=== PATIENT | male | born 1955 | race Caucasian/White ===

== ENCOUNTER 2016-06-26 08:46 | Inpatient (IN) | payer OTHER ==
[~2016-06-26] VITALS: Ht 170.2 cm; Wt 83.6 kg
[~2016-06-26 08:46] MED LIST: CEPH-443 PO
--- NOTE | 2016-06-26 12:22 | ERA ---
ER Documentation Chief Complaint Date/Time DATE: 06/26/16 TIME: 12:21 Chief Complaint left lower flank pain with hematuria and urinary retention for 3 days. HPI The patient is a 61-year-old female, presenting to the ER because of lower back pain, abdominal pain, painful urination for the last 3 days. He had similar symptoms previously, denies fever, chills, neck pain, chest pain, dyspnea, vomiting, diarrhea, constipation. He does not smoke does not drink Past medical history: Anemia, history of urinary retention, BPH Past surgical history: TURP 3 years ago, left knee arthroscopy ROS All systems reviewed and are negative except as per history of present illness. Medications Home Meds Active Scripts Cephalexin* (Keflex*) 500 Mg Capsule, 500 MG PO QID for 7 Days, CAP Prov:SCAR AJ MD 02/14/16 Allergies Allergies: Coded Allergies: ciprofloxacin (Verified Allergy, Mild, 09/02/15) PMhx/Soc History of Surgery: Yes (KNEE SX,CYSTOSCOPY) Anesthesia Reaction: No Hx Neurological Disorder: No Hx Respiratory Disorders: No Hx Cardiac Disorders: No Hx Psychiatric Problems: No Hx Miscellaneous Medical Probl: No Hx Alcohol Use: No Hx Substance Use: No Hx Tobacco Use: No Physical Exam Vitals Vital Signs Date Time Temp Pulse Resp B/P Pulse Ox O2 Delivery O2 Flow Rate FiO2 06/26/16 08:54 97.9 100 21 144/89 99 Physical Exam Const: No acute distress. Head: Atraumatic. Eyes: Normal Conjunctiva. ENT: Normal External Ears, Nose and Mouth. Neck: Full range of motion. No meningismus. Resp: Clear to auscultation bilaterally. Cardio: Regular rate and rhythm, no murmurs. Abd: Soft, non distended, normal bowel sounds, diffuse abdominal tenderness, no rigidity, rebound, CVA tenderness. Mild lumbar tenderness Skin: No petechiae or rashes. Back: No midline or flank tenderness. Ext: No cyanosis, or edema. Neur: Awake and alert. No focal deficit Psych: Normal Mood and Affect. Result Diagram: 06/26/16 1305 06/26/16 1305 Results 24 hrs Laboratory Tests Test 06/26/16 13:05 Alanine Aminotransferase (ALT/SGPT) 29IU/L Albumin 4.1g/dl Albumin/Globulin Ratio 1.20 Alkaline Phosphatase 346IU/L Anion Gap 19 Aspartate Amino Transf (AST/SGOT) 59IU/L Basophils # 0.010^3/ul Basophils % 0.2% Blood Morphology Comment Blood Urea Nitrogen 24mg/dl Calcium Level 9.6mg/dl Carbon Dioxide Level 30mmol/L Chloride Level 98mmol/L Creatinine 0.95mg/dl Direct Bilirubin 0.00mg/dl Eosinophils # 0.010^3/ul Eosinophils % 0.3% Globulin 3.40g/dl Glucose Level 120mg/dl Hematocrit 42.3% Hemoglobin 14.3g/dl Indirect Bilirubin 0.9mg/dl Lipase 61U/L Lymphocytes # 1.010^3/ul Lymphocytes % 10.0% Mean Corpuscular Hemoglobin 30.6pg Mean Corpuscular Hemoglobin Concent 33.9g/dl Mean Corpuscular Volume 90.3fl Mean Platelet Volume 6.9fl Monocytes # 0.810^3/ul Monocytes % 7.5% Neutrophils # 8.310^3/ul Neutrophils % 82.0% Nucleated Red Blood Cells # 0.010^3/ul Nucleated Red Blood Cells % 0.0/100WBC Platelet Count 83049^3/UL Potassium Level 4.6mmol/L Red Blood Count 4.6910^6/ul Red Cell Distribution Width 12.5% Sodium Level 142mmol/L Total Bilirubin 0.9mg/dl Total Protein 7.5g/dl Urine Bilirubin 1+ Urine Clarity CLOUDY Urine Color RED Urine Glucose NEGATIVE% Urine Hemoglobin 3+ Urine Ictotest Pending Urine Ketones TRACE Urine Leukocyte Esterase NEGATIVE Urine Microscopic RBC >200/HPF Urine Microscopic WBC 0-2/HPF Urine Nitrite NEGATIVE Urine Specific [place] 1.015 Urine Total Protein 2+ Urine Urobilinogen 0.2 E.U./dL Urine pH 5.0 White Blood Count 10.110^3/ul Current Medications Medications (Trade) Dose Ordered Sig/Olaf Route PRN Reason Start Time Stop Time Status Last Admin Dose Admin Morphine Sulfate (morphine) 4 mg ONCE STAT IV 06/26/16 12:33 06/26/16 12:35 DC 06/26/16 12:33 Ondansetron HCl (Zofran Inj) 4 mg ONCE STAT IV 06/26/16 12:33 06/26/16 12:35 DC 06/26/16 12:33 Procedures/[facility] [address] [address] Radiology Main Line: [phone] DIAGNOSTIC IMAGING REPORT Patient: SHON DORSEY : 1955 Age: 61 Sex: M MR #: [id number] DOS: 06/26/16 1233 Ordering MD: JULIAN LARSEN MD Location: E/R Room/Bed: PROCEDURE: CT Abdomen and Pelvis without contrast. CLINICAL INDICATION: Hematuria, low back pain TECHNIQUE: CT of the abdomen and pelvis was performed on a multi-detector scanner without IV contrast. Coronal and sagittal images were reformatted from the axial data set. One or more of the following dose reduction techniques were used: automated exposure control, adjustment of the mA and/or kV according to patient size, use of iterative reconstruction technique. CTDI = 11.98 mGy. DLP = 687.8 mGy-cm. COMPARISON: CT, 02/12/2015 FINDINGS: CT abdomen: The lung bases are clear. The heart size is normal, without pericardial effusion. Coronary arterial calcifications are present. Liver, gallbladder, biliary tree, pancreas, spleen and adrenal glands are unremarkable. Bilateral benign renal cysts are noted. Tiny nonobstructive left renal calculus is identified, without ureterolithiasis or obstructive uropathy. Small hiatal hernia is noted. The stomach is otherwise grossly unremarkable. The aorta is of normal caliber. Aortoiliac atherosclerotic calcifications are present. Enlarged right retroperitoneal lymph node is identified measuring 3.0 x 1.7 cm (601-57). The dante hepatis region is clear. CT pelvis: No bowel obstruction, free intraperitoneal air or abscess is identified. No diverticulosis, diverticulitis or colitis is identified. The appendix is well visualized and normal. Urinary bladder is markedly distended, concerning for urinary retention. Prostate is enlarged and demonstrates irregular contour and posterior bulging on the left. Posterior urinary bladder wall appears thickened , greater on the right - this grossly appears contiguous with the enlarged prostate. Right iliac lymphadenopathy is identified measuring up to 3.6 x 2.4 cm (3-96). Multiple solid nodules are identified within perirectal and ischiorectal fat as well measuring up to 2.0 x 1.4 cm in the left perirectal space (3-144), and 2.0 x 1.8 cm in the right ischiorectal fat (3-140). Multiple osteosclerotic foci are seen involving right acetabulum and inferior pubic ramus, bilateral iliac bones, right sacrum, T11, L1 and L5, consistent with osseous metastatic disease. There is degenerative spondylosis of the spine. IMPRESSION: 1. Prostate is significantly enlarged, demonstrating abnormal contour bulging posteriorly on the left. Adjacent urinary bladder wall thickening is seen, which grossly appears contiguous with the enlarged prostate. Findings are suggestive of prostate cancer, though synchronous neoplasm of the urinary bladder is also possible. 2. Retroperitoneal and left iliac lymphadenopathy is identified, along with solid nodules in the perirectal and ischiorectal fat, all of which are new when compared to the prior exam. In addition, multiple new osteosclerotic lesions are identified. Findings are consistent with new metastatic disease, most likely of prostate origin. 3. Urinary bladder is significantly distended, suggestive of urinary retention. 4. Small nonobstructive left renal calculus is noted, without ureterolithiasis or hydroureteronephrosis. RPTAT: QQ .Sameer Sanabria MD, MD Date Time Electronically viewed and signed by .Sameer Sanabria MD, MD on 06/26/2016 13: 14 .R/ CC: JULIAN LARSEN MD MEDICAL MAKING DECISION: The patient is a 61-year-old male, presenting with acute urinary retention, acute hematuria, possible metastatic prostate CA. He was treated with morphine 4 mg IV for pain and Zofran formula IV for nausea with good response. I have requested for Zaidi catheter to be inserted due to acute urinary retention. The differential diagnoses considered include but are not limited to cholelithiasis, cholecystitis, cystitis, pancreatitis, hepatitis , gastritis, peptic ulcer disease, gastric ulcer, appendicitis, diverticulitis, cholangitis, choledocholithiasis, partial small bowel obstruction. Departure Diagnosis: Primary Impression: Prostate cancer Additional Impressions: Urinary retention Abnormal LFTs Condition: Stable Comments Consultation: I discussed the patient with the urologist Dr. Henao who has seen him in the past. He was made aware of the lab, treatment, the patient condition. He accepted the consult at 2:20 PM I discussed the findings with the patient. I discussed the patient with his physician who was made aware of the lab, the treatment, the patient condition and my discussion with the urologist. The patient is admitted to medical surgery bed at 2:25 PM The patient's blood pressure was elevated (>120/80) but appears stable without evidence of hypertension emergency or urgency. The patient was counseled about the risks of hypertension and urged to pursue outpatient monitoring and therapy within a week after discharge with their primary care physician. JULIAN LARSEN MD Jun 26, 2016 12:22
[2016-06-26] MEDS ORDERED: ONDANSETRON 4 MG INJ IV STA (12:33)
[2016-06-26] MEDS ORDERED: morphine 4 MG/ML VIAL IV STA (12:33)
--- NOTE | 2016-06-26 13:14 | RADRPT ---
PROCEDURE: CT Abdomen and Pelvis without contrast. CLINICAL INDICATION: Hematuria, low back pain TECHNIQUE: CT of the abdomen and pelvis was performed on a multi-detector scanner without IV contr ast. Coronal and sagittal images were reformatted from the axial data set. One or more of the foll owing dose reduction techniques were used: automated exposure control, adjustment of the mA and/or kV according to patient size, use of iterative reconstruction technique. CTDI = 11.98 mGy. DLP = 68 7.8 mGy-cm. COMPARISON: CT, 02/12/2015 FINDINGS: CT abdomen: The lung bases are clear. The heart size is normal, without pericardial effusion. Coronary arteria l calcifications are present. Liver, gallbladder, biliary tree, pancreas, spleen and adrenal glands are unremarkable. Bilateral benign renal cysts are noted. Tiny nonobstructive left renal calculus is identified, without ureterolithiasis or obstructive uropathy. Small hiatal hernia is noted. Th e stomach is otherwise grossly unremarkable. The aorta is of normal caliber. Aortoiliac atherosclerotic calcifications are present. Enlarged ri ght retroperitoneal lymph node is identified measuring 3.0 x 1.7 cm (601-57). The dante hepatis reg ion is clear. CT pelvis: No bowel obstruction, free intraperitoneal air or abscess is identified. No diverticulosis, diverti culitis or colitis is identified. The appendix is well visualized and normal. Urinary bladder is m arkedly distended, concerning for urinary retention. Prostate is enlarged and demonstrates irregula r contour and posterior bulging on the left. Posterior urinary bladder wall appears thickened, grea ter on the right - this grossly appears contiguous with the enlarged prostate. Right iliac lymphade nopathy is identified measuring up to 3.6 x 2.4 cm (3-96). Multiple solid nodules are identified wi thin perirectal and ischiorectal fat as well measuring up to 2.0 x 1.4 cm in the left perirectal spa ce (3-144), and 2.0 x 1.8 cm in the right ischiorectal fat (3-140). Multiple osteosclerotic foci are seen involving right acetabulum and inferior pubic ramus, bilateral iliac bones, right sacrum, T11, L1 and L5, consistent with osseous metastatic disease. There is de generative spondylosis of the spine. IMPRESSION: 1. Prostate is significantly enlarged, demonstrating abnormal contour bulging posteriorly on the le ft. Adjacent urinary bladder wall thickening is seen, which grossly appears contiguous with the enl arged prostate. Findings are suggestive of prostate cancer, though synchronous neoplasm of the urin amber bladder is also possible. 2. Retroperitoneal and left iliac lymphadenopathy is identified, along with solid nodules in the pe rirectal and ischiorectal fat, all of which are new when compared to the prior exam. In addition, m ultiple new osteosclerotic lesions are identified. Findings are consistent with new metastatic dise ase, most likely of prostate origin. 3. Urinary bladder is significantly distended, suggestive of urinary retention. 4. Small nonobstructive left renal calculus is noted, without ureterolithiasis or hydroureteronephr osis. RPTAT: QQ .Sameer Sanabria MD, MD Date Time Electronically viewed and signed by .Sameer Sanabria MD, on 06/26/2016 13:14 .R/
[2016-06-26 13:24] LABS: BASOPHILS % 0.2 % (0.0-2.0); EOSINOPHILS % 0.3 % (0.0-7.0); HEMATOCRIT 42.3 % (42.0-52.0); HEMOGLOBIN 14.3 g/dl (14.0-18.0); MEAN CORPUSCULAR HEMOGLOBIN 30.6 pg (29.0-33.0); MEAN CORPUSCULAR HGB CONC 33.9 g/dl (32.0-37.0); MEAN CORPUSCULAR VOLUME 90.3 fl (82.0-101.0); MEAN PLATELET VOLUME 6.9 fl (7.4-10.4); MONOCYTE # 0.8 10^3/ul (0.3-0.9); MONOCYTES % 7.5 % (0.0-11.0); NEUTROPHIL # 8.3 10^3/ul (1.6-7.5); PLATELET COUNT 205 10^3/UL (140-440); RED BLOOD COUNT 4.69 10^6/ul (4.70-6.10); RED CELL DISTRIBUTION WIDTH 12.5 % (11.5-14.5); UNCORRECTED WBC 10.1 10^3/ul (4.8-10.8); WHITE BLOOD COUNT 10.1 10^3/ul (4.8-10.8)
[2016-06-26 13:26] LABS: CONDITION 1
[2016-06-26 13:31] LABS: ADD UMIC YES; URINE BILIRUBIN (Dip) 1+ (NEGATIVE); URINE BLOOD (Dip) 3+ (NEGATIVE); URINE COLOR RED (YELLOW); URINE GLUCOSE (Dip) NEGATIVE (NEGATIVE); URINE KETONES (Dip) TRACE (NEGATIVE); URINE LEUKOCYTE ESTERASE (Dip) NEGATIVE (NEGATIVE); URINE NITRITE (Dip) NEGATIVE (NEGATIVE); URINE TOTAL PROTEIN (Dip) 2+ (NEGATIVE); URINE UROBILINOGEN (Dip) 0.2 E.U./dL (0.1-1.0)
[2016-06-26 13:36] LABS: ALBUMIN 4.1 g/dl (3.3-4.9); POTASSIUM 4.6 mmol/L (3.5-5.1)
[2016-06-26 13:39] LABS: ALBUMIN/GLOBULIN RATIO 1.2; BILIRUBIN,INDIRECT 0.9 mg/dl (0-1.1); BILIRUBIN,TOTAL 0.9 mg/dl (0.2-1.3); CALCIUM 9.6 mg/dl (8.4-10.2); CREATININE 0.95 mg/dl (0.61-1.24); TOTAL PROTEIN 7.5 g/dl (6.1-8.1); URINE RBCS >200 /HPF (0)
[2016-06-26 14:56] LABS: ICTOTEST NEGATIVE (NEGATIVE)
[2016-06-26] MEDS ORDERED: NACL 0.9% 3 ML SYG IV SCH (15:30)
[2016-06-26] MEDS ORDERED: MAGNESIUM HYDROXIDE 30ML CUP PO PRN (15:30)
[2016-06-26] MEDS ORDERED: BISACODYL (EC) 5 MG TAB PO PRN (15:30)
[2016-06-26] MEDS ORDERED: ACETAMINOPHEN 325 MG TAB PO PRN (15:30)
[2016-06-26] MEDS ORDERED: ONDANSETRON 4 MG INJ IV PRN (15:30)
--- NOTE | 2016-06-26 15:59 | HP ---
DATE OF ADMISSION: 06/26/2016 TIME OF EVALUATION: 1500 hours. REASON FOR ADMISSION: Hematuria. CONSULTATIONS: Dr. Adrian Mari, Urology. HOSPITAL COURSE: This is a 61-year-old male with past medical history of benign prostatic hypertrophy status post TURP in 2014, who came to the emergency room with chief complaint of lower back pain, abdominal pain and painful urination with associated hematuria for the past 3 days. The patient denied any fevers or chills. The patient denied any diarrhea. The patient was complaining of being constipated lately. The patient denied any hematochezia or melena. The patient denied any nausea or vomiting. The patient verbalized that he tried [id number] Motrin with minimal pain relief. The patient verbalized that he was not been able to sleep for the past 2 nights because of significant pain. The patient denied any other significant past medical history including any essential hypertension or diabetes. In the emergency room, the patient was noticed to have elevated AST and elevated alkaline phosphatase. The patient underwent a CT scan of the abdomen and pelvis that showed significantly enlarged prostate with adjacent urinary bladder wall thickening. The CT also revealed retroperitoneal and left iliac lymphadenopathy along with solid nodules in the perirectal and ischiorectal fat. The CT also revealed multiple osteosclerotic lesions. The CT revealed significantly distended urinary bladder. The patient's urinalysis showed 3+ hemoglobin. The patient was treated with IV analgesics and IV antiemetics in the emergency room. A urology consult was called by the ER physician. PAST MEDICAL HISTORY: Benign prostatic hypertrophy. PAST SURGICAL HISTORY: TURP on 02/16/2015, left knee surgery. HOME MEDICATIONS: None. ALLERGIES: CIPROFLOXACIN. SOCIAL HISTORY: The patient lives at home. The patient is currently retired. Denies any use of alcohol or tobacco. FAMILY HISTORY: Positive for CAD and dyslipidemia. REVIEW OF SYSTEMS: A 12-point review of systems were made and review of systems was negative other than what is mentioned in history of present illness. PHYSICAL EXAMINATION: VITAL SIGNS: Temperature 97.9, pulse rate 87, respiratory rate 19, blood pressure 143/93, oxygen saturation 98% on room air. GENERAL: This is a well-built, well-nourished male lying in bed in no apparent distress. HEENT: Head normocephalic and atraumatic. Eyes: Anicteric sclerae. Conjunctivae clear. ENT: Nasal septum is midline. Oral mucosa is moist. NECK: Supple. No JVD noticed. RESPIRATORY: Bilaterally clear to auscultation. No adventitious breath sounds. No use of accessory muscles of respiration. CARDIAC: Regular rate and rhythm. No murmurs. GASTROINTESTINAL: Abdomen soft, nontender, nondistended. Bowel sounds positive in all 4 quadrants. GENITOURINARY: Deferred. EXTREMITIES: No cyanosis, no clubbing, no edema. Peripheral pulses are palpable. NEUROLOGIC: The patient is awake, alert and oriented. Cranial nerves are grossly intact. LABORATORY AND DIAGNOSTIC DATA: WBC 10.1, hemoglobin 14.3, hematocrit 42.3, platelet count 205. Sodium 142, potassium 4.6, chloride 90, carbon dioxide 30, anion gap 19, BUN 24, creatinine 0.9, glucose 120, calcium 9.6, AST 59, ALT 29, alkaline phosphatase 346. Urinalysis: Urine nitrite negative, leukocyte esterase negative, urine hemoglobin 3+, urine total protein 2+. CT scan of the abdomen and pelvis: Prostate is significantly enlarged. Adjacent urinary bladder wall thickening is seen. Retroperitoneal and left iliac lymphadenopathy is identified along with solid nodules in the perirectal and ischiorectal fat. Multiple new osteosclerotic lesions. Findings are consistent with new metastatic disease. The urinary bladder is significantly distended, suggestive of urinary retention. Small nonobstructive left renal calculus without ureterolithiasis or hydroureteronephrosis. IMPRESSION: This is a 61-year-old male who came to the emergency room with chief complaint of hematuria, was found to have enlarged prostate on imaging studies with possible underlying malignant process. He will be admitted here for further treatment and evaluation. ASSESSMENT AND PLAN: 1. Hematuria. Etiology unclear. The patient's H and H will be monitored closely. The patient will be transfused as needed. Urology consult will be obtained. 2. Enlarged prostate gland with associated lymphadenopathy and osteosclerotic lesions concerning for malignancy. A prostate specific antigen will be obtained. Will obtain urology consult. Will await urology recommendations regarding this. Will involve oncology on the case after urology evaluation. Plan. The patient will be admitted to inpatient medical/surgical floor. The patient will be started on DVT prophylaxis and gastrointestinal prophylaxis. A chemical DVT prophylaxis will be avoided because of underlying hematuria. The patient will be started on a regular diet. The patient will remain a FULL CODE. Activities will be as tolerated. The rest of the patient's management will be based on the clinical course, the results of diagnostic studies, and inputs from consultants. Based on the patient's clinical presentation, he most probably requires more than 2 midnights' stay for further management and evaluation of his clinical presentation. The case and management of this patient was fully discussed with Dr. Martinez. Approximately 50 minutes was spent on the history and physical on this patient. AUGUST MARTINEZ MD, AM/MIRNA Conf#: [id number] DID#: [id number] MTDD
[2016-06-26] MEDS: HYDROCODONE/APAP (5/325) TAB PO PRN (16:32)
[2016-06-26] MEDS: SOD CHLORIDE 0.9% 1,000 ML IV SCH (16:40)
[2016-06-26 17:50] VITALS: TEMP 98.2
[2016-06-26 18:10] VITALS: BP 163/90; RESP 22
[2016-06-26 18:48] VITALS: Ht 170.2 cm; Wt 83.6 kg
[2016-06-26 20:23] VITALS: BP 144/77; RESP 18
[2016-06-26] MEDS: FAMOTIDINE 20 MG TAB PO SCH (21:20)
--- NOTE | 2016-06-26 22:22 | CONS ---
DATE OF ADMISSION: 06/26/2016 DATE OF CONSULTATION: 06/26/2016 REQUESTING PHYSICIAN: Dr. Benson HISTORY OF PRESENT ILLNESS: This is a 61-year-old male who is known to me from before. He presente d to the emergency room today complaining of difficulty voiding. The patient stated that he has bee n trying to urinate and he has been urinating blood and he has abdominal pain. Attempt by the emerg ency room physician and staff to insert a Zaidi catheter was not successful. Therefore, I was paulino d and urology consultation was requested. The patient is known to have a history of urethral strict ure that was dilated in the past, also history of urinary retention. He underwent transurethral res ection of prostate in 2014. The pathology report on that resection was benign. There was no cancer in the prostate resected at that time. The patient underwent a CT scan of the abdomen and pelvis t jonathan and that showed a distended urinary bladder and pelvic adenopathy, most likely consistent with metastatic prostate cancer. PAST SURGICAL HISTORY: Includes history of left knee surgery. ALLERGIES: THE PATIENT IS ALLERGIC TO CIPRO. MEDICATIONS: He is on include: 1. Pepcid. 2. Zofran p.r.n. 3. Rugby. 4. Milk of magnesia. 5. Dulcolax. PHYSICAL EXAMINATION: GENERAL: Reveals an elderly male. He weighs 83.6 kg. He is 67 inches tall. VITAL SIGNS: His temperature is 98.8, pulse is 80, respirations 22, blood pressure 163/90. HEAD AND NECK: Unremarkable. ABDOMEN: Suprapubic tenderness. The bladder is distended. GENITALIA: External genitalia are normal. RECTAL: Revealed a hard prostate. EXTREMITIES: Reveal no edema. LABORATORY DATA: CBC shows a white count of 10.1, hemoglobin 14.3, hematocrit 42.3. BUN is 24, cre atinine 0.95. Electrolytes are normal. PSA 54.5. The CT scan of the abdomen and pelvis again repo rted as prostate significantly enlarged demonstrating abnormal contour bulging posteriorly on the le ft side. The bladder wall thickening. There is finding suggestive of prostate cancer, though synch ronous neoplasm of the urinary bladder is also possible, but from the history on this patient, this most likely prostate cancer. Retroperitoneal and left iliac lymphadenopathy is identified along wit h solid nodule in the perirectal and ischiorectal fat, all of which are new when compared to prior C T scan. In addition, multiple new osteosclerotic lesions are identified. These findings are consis tent with new metastatic disease, most likely prostate. His urinary bladder is significantly disten ded and a small nonobstructive left renal calculus is noted without hydronephrosis. IMPRESSION: 1. Urinary retention. 2. Metastatic adenocarcinoma of the prostate. 3. Urethral stricture. PLAN: I did do urethral dilatation from an 8-Russian to 20 Russian, then inserted a 16-Russian coude c atheter. Over 500 mL of clear urine drained out. Urine was sent for culture and sensitivity. The Zaidi will be kept in for a couple of days. The patient will be started on Lupron Depot 7.5 mg IM e very month. In a couple of days, we should take the catheter out and see if he is able to urinate o n his own. I will follow his urological problem with you. I do thank you for allowing me to help i n his care. Dictated By: WILLIAM DONAHUE MD BB/MIRNA Conf#: [id number] DID#: [id number] CC: DOC BENSON MD;*EndCC*
[2016-06-27] MEDS: SOD CHLORIDE 0.9% 1,000 ML IV SCH ×3 (06:39→20:19)
[2016-06-27 06:47] LABS: BASOPHILS % 0.4 % (0.0-2.0); EOSINOPHILS # 0.1 10^3/ul (0.0-0.5); EOSINOPHILS % 1.1 % (0.0-7.0); HEMATOCRIT 38.5 % (42.0-52.0); HEMOGLOBIN 13.2 g/dl (14.0-18.0); LYMPHOCYTES # 1.3 10^3/ul (0.8-2.9); LYMPHOCYTES % 15.4 % (15.0-51.0); MEAN CORPUSCULAR HEMOGLOBIN 31.1 pg (29.0-33.0); MEAN CORPUSCULAR HGB CONC 34.4 g/dl (32.0-37.0); MEAN CORPUSCULAR VOLUME 90.6 fl (82.0-101.0); MEAN PLATELET VOLUME 7.6 fl (7.4-10.4); MONOCYTE # 0.8 10^3/ul (0.3-0.9); MONOCYTES % 9.9 % (0.0-11.0); NEUTROPHIL # 6.1 10^3/ul (1.6-7.5); NEUTROPHILS % 73.2 % (39.0-77.0); PLATELET COUNT 194 10^3/UL (140-440); RED BLOOD COUNT 4.25 10^6/ul (4.70-6.10); RED CELL DISTRIBUTION WIDTH 12.6 % (11.5-14.5); UNCORRECTED WBC 8.3 10^3/ul (4.8-10.8); WHITE BLOOD COUNT 8.3 10^3/ul (4.8-10.8)
[2016-06-27 06:49] LABS: CONDITION 1
[2016-06-27 06:58] LABS: ALBUMIN 3.7 g/dl (3.3-4.9)
[2016-06-27 06:59] LABS: POTASSIUM 4.3 mmol/L (3.5-5.1)
[2016-06-27 07:01] LABS: ALBUMIN/GLOBULIN RATIO 1.12; BILIRUBIN,INDIRECT 0.7 mg/dl (0-1.1); BILIRUBIN,TOTAL 0.7 mg/dl (0.2-1.3); CREATININE 0.95 mg/dl (0.61-1.24)
[2016-06-27 07:02] LABS: CALCIUM 8.8 mg/dl (8.4-10.2)
[2016-06-27 07:33] LABS: CARCINOEMBRYONIC ANTIGEN 4.5 ng/ml (0.0-5.0)
[2016-06-27 07:43] LABS: CHOL/HDL RATIO 4.2 RATIO; MAGNESIUM 2.1 mg/dl (1.7-2.5)
[2016-06-27 08:08] LABS: THYROID STIMULATING HORMONE 1.24 MIU/L (0.465-4.680)
[2016-06-27] MEDS: FAMOTIDINE 20 MG TAB PO SCH ×2 (08:41→20:19)
[2016-06-27 09:07] VITALS: BP 120/70; RESP 16
[2016-06-27] MEDS ORDERED: BISACODYL (EC) 5 MG TAB PO ONE (12:00)
--- NOTE | 2016-06-27 14:51 | PN ---
Date/Time of Note Date/Time of Note DATE: 06/27/16 TIME: 14:37 Assessment/Plan VTE Prophylaxis VTE Prophylaxis Intervention: SCD's Lines/Catheters IV Catheter Type (from Nrsg): Peripheral IV Assessment/Plan Assessment/Plan 1. Urinary retention due to prostate cancer and urethral stricture, s/p dilatation, keep Zaidi, follow up with urology, follow up with urine c/s 2. Metastatic adenocarcinoma of the prostate, on leuprolide monthly 3. Constipation, laxatives Subjective 24 Hr Interval Summary Free Text/Dictation constipation, some low back pain Exam/Review of Systems Vital Signs Vitals Vital Signs Date Time Temp Pulse Resp B/P Pulse Ox O2 Delivery O2 Flow Rate FiO2 06/27/16 09:07 99.2 85 16 120/70 94 06/26/16 17:50 Room Air Intake and Output 06/26/16 06/26/16 06/27/16 15:00 23:00 07:00 Intake Total 3400 ml Output Total 2900 ml Balance 500 ml Exam Constitutional: alert, oriented, well developed Psych: nl mood/affect, no complaints Head: atraumatic, normocephalic Eyes: EOMI, PERRL, nl conjunctiva, nl lids ENMT: nl external ears & nose, nl lips & teeth Neck: non-tender, supple Respiratory: clear to auscultation, normal air movement, No congested cough, No crackles/rales, No diminished breath sounds, No intercostal retraction, No labored breathing, No other, No respirations, No tactile fremitus, No wheezing Cardiovascular: nl pulses, regular rate and rhythm, No S3, No S4, No bruits, No diastolic murmur, No edema, No gallop, No irregular rhythm, No jugular venous distention (JVD), No murmurs/extra sounds, No other, No rub, No systolic murmur Gastrointestinal: nl liver, spleen, non-tender, soft, No ascites, No bowel sounds, No distended, No firm, No hepatomegaly, No mass , No other, No rebound or guarding, No splenomegaly, No surgical scars, No tender Musculoskeletal: nl extremities to inspection Extremities: normal pulses, No calf tenderness, No clubbing, No cyanosis, No edema, No other, No palpable cord, No pitting pedal edema, No tenderness Neurological: CASINO FLOOR WALKER II-XII intact, nl mental status, nl speech, nl strength Skin: nl turgor, rash or lesions Results Result Diagram: 06/27/16 0510 06/27/16 0510 Results 24 hrs Laboratory Tests Test 06/27/16 05:10 Alanine Aminotransferase (ALT/SGPT) 29 Albumin 3.7 Albumin/Globulin Ratio 1.12 Alkaline Phosphatase 325 H Anion Gap 15 Aspartate Amino Transf (AST/SGOT) 53 H Basophils # 0.0 Basophils % 0.4 Blood Urea Nitrogen 22 H Calcium Level 8.8 Carbon Dioxide Level 30 Carcinoembryonic Antigen 4.5 Chloride Level 99 Cholesterol Level 158 Cholesterol/HDL Ratio 4.2 Creatinine 0.95 Direct Bilirubin 0.00 Eosinophils # 0.1 Eosinophils % 1.1 Free Thyroxine 1.01 Globulin 3.30 H Glucose Level 103 HDL Cholesterol 37 Hematocrit 38.5 L Hemoglobin 13.2 L Hemoglobin A1c 5.8 Indirect Bilirubin 0.7 LDL Cholesterol, Calculated 99 Lactate Dehydrogenase 836 H Lymphocytes # 1.3 Lymphocytes % 15.4 Magnesium Level 2.1 Mean Corpuscular Hemoglobin 31.1 Mean Corpuscular Hemoglobin Concent 34.4 Mean Corpuscular Volume 90.6 Mean Platelet Volume 7.6 Monocytes # 0.8 Monocytes % 9.9 Neutrophils # 6.1 Neutrophils % 73.2 Nucleated Red Blood Cells # 0.0 Nucleated Red Blood Cells % 0.0 Platelet Count 194 Potassium Level 4.3 Red Blood Count 4.25 L Red Cell Distribution Width 12.6 Sodium Level 140 Thyroid Stimulating Hormone (TSH) 1.240 Total Bilirubin 0.7 Total Protein 7.0 Triglycerides Level 112 White Blood Count 8.3 Medications Medications Current Medications Sodium Chloride (NS) 1,000 ml @ 75 mls/hr [id number] IV Last administered on 06:39; Admin Dose 75 MLS/HR; Start 06/26/16 at 15:13 Ondansetron HCl (Zofran Inj) 4 mg Q6H PRN IV NAUSEA AND/OR VOMITING; Start 06/26 at 15:30 Acetaminophen (Tylenol Tab) 650 mg Q6H PRN PO PAIN LEVEL 1-3 OR FEVER; Start at 15:30 Acetaminophen/ Hydrocodone Bitart ([place] (5/325)) 1 tab Q6H PRN PO MODERATE PAIN LEVEL 4-6 Last administered on 06/26/16 16:32; Admin Dose 1 TAB; Start 06/26 at 15:30 Morphine Sulfate (morphine) 2 mg Q4H PRN IV SEVERE PAIN LEVEL 7-10; Start at 15:30 Magnesium Hydroxide (Milk Of Mag) 30 ml DAILY PRN PO CONSTIPATION; Start at 15:30 Bisacodyl (Dulcolax) 5 mg DAILY PRN PO CONSTIPATION; Start 06/26/16 at 15:30 Famotidine (Pepcid) 20 mg Q12 PO Last administered on 06/27/16 08:41; Admin Dose 20 MG; Start 06/26/16 at 21:00 Leuprolide Acetate (Lupron Depot) 7.5 mg ONCE ONCE IM ; Start 06/26/16 at 21:00 ; Stop 06/26/16 at 21:01; Status CHACHA PICKERING MD Jun 27, 2016 14:50
[2016-06-27] MEDS ORDERED: NA PHOSPHATE/BIPHOS 133 ML ENEMA PR ONE (15:00)
[2016-06-27] MEDS: LACTULOSE 30ML CUP PO PRN (15:03)
[2016-06-27] MEDS ORDERED: LEUPROLIDE 7.5 MG INJ IM SCH (18:30)
[2016-06-27 19:22] VITALS: BP 125/70; RESP 16
--- NOTE | 2016-06-27 19:27 | PN ---
DATE: 06/27/2016 SUBJECTIVE: Urinary retention and urethral stricture and metastatic prostate cancer. HISTORY OF PRESENT ILLNESS: The patient is feeling much better today. His urine is clear. He was urinating blood when he came in and in fact he was in urinary retention. He did have a urethral str icture that I did dilate and then inserted a catheter for him. OBJECTIVE: VITAL SIGNS: Temperature is 99.2, respirations 16, blood pressure 120/70, pulse is 85. ABDOMEN: Soft. The Zaidi catheter is draining clear urine. The urine culture no growth after 24 hours. LABORATORY DATA: CBC shows a white count of 8.3, hemoglobin 13.2, hematocrit 38.5. BUN is 22, crea tinine is 0.95. Electrolytes are normal. The CT of the abdomen and pelvis that he had showed that retroperitoneal and iliac lymphadenopathy. Also, he did have multiple osteosclerotic lesions not id entified. We will get a bone scan to visualize these better for future reference and he already tod ay received 7.5 mg of Lupron Depot IM in the right buttock area. The sclerotic foci involving the r ight acetabulum, inferior pubic ramus, bilateral iliac bones, right sacrum, T11, L1 and L5. Dictated By: WILLIAM BUENO/MIRNA Conf#: [id number] DID#: [id number]
[2016-06-27] MEDS: HYDROCODONE/APAP (5/325) TAB PO PRN (23:47)
[2016-06-28 08:01] VITALS: BP 127/77; RESP 19
[2016-06-28] MEDS: FAMOTIDINE 20 MG TAB PO SCH ×2 (08:26→21:30)
[2016-06-28] MEDS: SOD CHLORIDE 0.9% 1,000 ML IV SCH (08:27)
--- NOTE | 2016-06-28 15:30 | PN ---
Date/Time of Note Date/Time of Note DATE: 06/28/16 TIME: 15:28 Assessment/Plan VTE Prophylaxis VTE Prophylaxis Intervention: SCD's Lines/Catheters IV Catheter Type (from Nrsg): Peripheral IV Assessment/Plan Assessment/Plan 1. Urinary retention due to prostate cancer and urethral stricture, s/p dilatation, keep Zaidi, follow up with urology for discharge plan(Zaidi) 2. Metastatic adenocarcinoma of the prostate, on leuprolide monthly 3. Constipation, laxatives Subjective 24 Hr Interval Summary Free Text/Dictation no fever or chills Exam/Review of Systems Vital Signs Vitals Vital Signs Date Time Temp Pulse Resp B/P Pulse Ox O2 Delivery O2 Flow Rate FiO2 06/28/16 08:01 98.5 82 19 127/77 95 06/26/16 17:50 Room Air Intake and Output 06/27/16 06/27/16 06/28/16 15:00 23:00 07:00 Intake Total 3740 ml 3075 ml Output Total 4300 ml 3400 ml Balance -560 ml -325 ml Exam Constitutional: alert, oriented, well developed Psych: nl mood/affect, no complaints Head: atraumatic, normocephalic Eyes: EOMI, PERRL, nl conjunctiva, nl lids ENMT: nl external ears & nose, nl lips & teeth, nl nasal mucosa & septum Neck: supple Respiratory: clear to auscultation, normal air movement, No congested cough, No crackles/rales, No diminished breath sounds, No intercostal retraction, No labored breathing, No other, No respirations, No tactile fremitus, No wheezing Cardiovascular: nl pulses, regular rate and rhythm, No S3, No S4, No bruits, No diastolic murmur, No edema, No gallop, No irregular rhythm, No jugular venous distention (JVD), No murmurs/extra sounds, No other, No rub, No systolic murmur Gastrointestinal: nl liver, spleen, non-tender, soft, No ascites, No bowel sounds, No distended, No firm, No hepatomegaly, No mass , No other, No rebound or guarding, No splenomegaly, No surgical scars, No tender Musculoskeletal: nl extremities to inspection Extremities: normal pulses, No calf tenderness, No clubbing, No cyanosis, No edema, No other, No palpable cord, No pitting pedal edema, No tenderness Neurological: TOOLROOM ATTENDANT II-XII intact, nl mental status, nl speech, nl strength Skin: nl turgor, rash or lesions Lymph: nl lymph nodes Results Result Diagram: 06/27/16 0506/27/16 0510 Medications Medications Current Medications Sodium Chloride (NS) 1,000 ml @ 75 mls/hr [id number] IV Last administered on 08:27; Admin Dose 75 MLS/HR; Start 06/26/16 at 15:13 Ondansetron HCl (Zofran Inj) 4 mg Q6H PRN IV NAUSEA AND/OR VOMITING; Start 06/26 at 15:30 Acetaminophen (Tylenol Tab) 650 mg Q6H PRN PO PAIN LEVEL 1-3 OR FEVER; Start at 15:30 Acetaminophen/ Hydrocodone Bitart ([place] (5/325)) 1 tab Q6H PRN PO MODERATE PAIN LEVEL 4-6 Last administered on 06/27/16 23:47; Admin Dose 1 TAB; Start 06/26 at 15:30 Morphine Sulfate (morphine) 2 mg Q4H PRN IV SEVERE PAIN LEVEL 7-10; Start at 15:30 Magnesium Hydroxide (Milk Of Mag) 30 ml DAILY PRN PO CONSTIPATION; Start at 15:30 Bisacodyl (Dulcolax) 5 mg DAILY PRN PO CONSTIPATION; Start 06/26/16 at 15:30 Famotidine (Pepcid) 20 mg Q12 PO Last administered on 06/28/16 08:26; Admin Dose 20 MG; Start 06/26/16 at 21:00 Lactulose (Enulose) 20 gm BID PRN PO CONSTIPATION Last administered on 15:03; Admin Dose 20 GM; Start 06/27/16 at 15:00 CHACHA MUÑOZ MD Jun 28, 2016 15:30
--- NOTE | 2016-06-28 16:06 | PN ---
DATE: 06/28/2016 SUBJECTIVE: Abdominal pain and low back pain that has improved, urinary retention and urethral stri cture and metastatic prostate cancer. OBJECTIVE: VITAL SIGNS: The patient is afebrile. Temperature is 98.5, pulse is 82, respirations 19, blood pre ssure is 127/77. ABDOMEN: Soft. There is no abdominal mass palpable. GENITOURINARY: The Zaidi catheter is draining clear urine. LABORATORY/DIAGNOSTIC DATA: The last CBC shows a white count of 8.3, hemoglobin 13.2. The BUN is 2 2, creatinine 0.95. His PSA was 54.5. Again, his prior CT scan of the abdomen and pelvis did show multiple osteosclerotic foci involving the right acetabulum, inferior pubic ramus, bilateral iliac b ones, right sacrum, T11, L1 and L5 and all these were consistent with osseous metastatic disease. T he prostate is significantly enlarged with bulging posteriorly, the urinary bladder was at that time distended, but since then he has had a Zaidi catheter. The patient is supposed to have bone scan a nd that is pending. The urine culture so far no growth in 48 hours. IMPRESSION: Metastatic prostate cancer. The patient received 1 injection of Lupron Depot 7.5 mg ye sterday. He is going to have a bone scan today. Urinary retention, he has a Zaidi catheter which I will remove tomorrow and check his postvoid residual. The urethral stricture has already been dila jolene. Dictated By: WILLIAM BUENO/MIRNA Conf#: [id number] DID#: [id number]
[2016-06-28 20:38] VITALS: BP 148/94; RESP 20
--- NOTE | 2016-06-28 21:11 | RADRPT ---
PROCEDURE: Whole body bone scan study CLINICAL INDICATION: 61 -year-old patient with prostate cancer, for evaluation for skeletal metast ases. TECHNIQUE: Following the intravenous injection of 21.5 mCi of Tc-99m MDP, whole body anterior and posterior planar images were obtained along with spot views of the head, neck, chest, abdomen and pe lvis . COMPARISON: No prior bone scans are available for comparison. CT scan of the abdomen and pelvis da jolene June 26, 2016. FINDINGS: Numerous abnormal focal areas of intensely increased tracer activity are seen in the right shoulder, rib cages bilaterally, spine, sacrum, pelvic bones bilaterally, distal humerus bilaterally, and lef t proximal femur. Mildly increased activity seen in the left knee, which is likely related to degenerative disease. No other definite abnormal areas of increased activity or asymmetries are visualized in the study an d distribution of radionuclide is homogeneous in the skull, spine, rib cages, sternum, pelvis and vi sualized portions of the upper and lower extremities. Of incidental note, there is no evidence of mass abnormalities of the poorly visualized kidneys . IMPRESSION: 1. Multiple abnormal focal areas of intensely increased tracer activity in the axial and appendicul ar skeleton, as described above, consistent with multiple skeletal metastases. 2. Likely degenerative changes of the left knee. RPTAT: QQ .Deneen Mariscal MD, MD Date Time Electronically viewed and signed by .Deneen Mariscal MD, on 06/28/2016 21:10 .L/
[2016-06-29] MEDS: FAMOTIDINE 20 MG TAB PO SCH ×2 (08:32→21:06)
[2016-06-29] MEDS: HYDROCODONE/APAP (5/325) TAB PO PRN (14:28)
--- NOTE | 2016-06-29 15:04 | PN ---
Date/Time of Note Date/Time of Note DATE: 06/29/16 TIME: 14:56 Assessment/Plan VTE Prophylaxis VTE Prophylaxis Intervention: SCD's Lines/Catheters IV [facility] (from [facility]): Saline Lock Urinary Cath still in place: No Assessment/Plan Assessment/Plan 1. Urinary retention due to prostate cancer and urethral stricture, s/p dilatation, still with urinary retention, follow up with urology 2. 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 Constipation, laxatives Subjective 24 Hr Interval Summary Free Text/Dictation unable to urinate after Zaidi removed Exam/Review of Systems Vital Signs Vitals Vital Signs Date Time Temp Pulse Resp B/P Pulse Ox O2 Delivery O2 Flow Rate FiO2 06/28/16 20:38 99.1 82 20 148/94 94 06/26/16 17:50 Room Air Intake and Output 06/28/16 06/28/16 06/29/16 15:00 23:00 07:00 Intake Total 5460 ml 1200 ml Output Total 5510 ml 1540 ml Balance -50 ml -340 ml Exam Constitutional: alert, oriented, well developed Psych: nl mood/affect, no complaints Head: atraumatic, normocephalic Eyes: EOMI, PERRL, nl conjunctiva, nl lids ENMT: nl external ears & nose, nl lips & teeth, nl nasal mucosa & septum Neck: non-tender, supple Respiratory: clear to auscultation, normal air movement, No congested cough, No crackles/rales, No diminished breath sounds, No intercostal retraction, No labored breathing, No other, No respirations, No tactile fremitus, No wheezing Cardiovascular: nl pulses, regular rate and rhythm, No S3, No S4, No bruits, No diastolic murmur, No edema, No gallop, No irregular rhythm, No jugular venous distention (JVD), No murmurs/extra sounds, No other, No rub, No systolic murmur Gastrointestinal: nl liver, spleen, non-tender, soft, No ascites, No bowel sounds, No distended, No firm, No hepatomegaly, No mass , No other, No rebound or guarding, No splenomegaly, No surgical scars, No tender Musculoskeletal: nl extremities to inspection Extremities: normal pulses, No calf tenderness, No clubbing, No cyanosis, No edema, No other, No palpable cord, No pitting pedal edema, No tenderness Neurological: CD MANUFACTURING SUPERVISOR II-XII intact, nl mental status, nl speech, nl strength Skin: nl turgor, rash or lesions Lymph: nl lymph nodes Results Result Diagram: 06/27/16 0510 06/27/16 0510 Medications Medications Current Medications Sodium Chloride (NS) 1,000 ml @ 0 mls/hr [id number] IV Last administered on 08:27; Admin Dose 75 MLS/HR; Start 06/26/16 at 15:13 Ondansetron HCl (Zofran Inj) 4 mg Q6H PRN IV NAUSEA AND/OR VOMITING; Start 06/26 at 15:30 Acetaminophen (Tylenol Tab) 650 mg Q6H PRN PO PAIN LEVEL 1-3 OR FEVER; Start at 15:30 Acetaminophen/ Hydrocodone Bitart ([place] (5/325)) 1 tab Q6H PRN PO MODERATE PAIN LEVEL 4-6 Last administered on 06/29/16 14:28; Admin Dose 1 TAB; Start 06/26/16 at 15:30 Morphine Sulfate (morphine) 2 mg Q4H PRN IV SEVERE PAIN LEVEL 7-10; Start at 15:30 Magnesium Hydroxide (Milk Of Mag) 30 ml DAILY PRN PO CONSTIPATION; Start at 15:30 Bisacodyl (Dulcolax) 5 mg DAILY PRN PO CONSTIPATION; Start 06/26/16 at 15:30 Famotidine (Pepcid) 20 mg Q12 PO Last administered on 06/29/16 08:32; Admin Dose 20 MG; Start 06/26/16 at 21:00 Lactulose (Enulose) 20 gm BID PRN PO CONSTIPATION Last administered on 15:03; Admin Dose 20 GM; Start 06/27/16 at 15:00 CHACHA MUÑOZ MD Jun 29, 2016 15:04
[2016-06-29] MEDS: FINASTERIDE 5 MG TAB PO SCH (21:06)
[2016-06-29] MEDS: LACTULOSE 30ML CUP PO PRN (21:06)
[2016-06-29 21:28] VITALS: BP 144/88; RESP 18
[2016-06-29] MEDS: TAMSULOSIN (SR) 0.4 MG CAP PO SCH (22:29)
[2016-06-29] MEDS: LORAZEPAM 1 MG TAB PO SCH (23:10)
--- NOTE | 2016-06-30 06:43 | PN ---
DATE: 06/29/2016 SUBJECTIVE: Metastatic prostate cancer with urinary retention and urethral stricture. The patient did have an indwelling Zaidi catheter. I had ordered the Zaidi catheter to be removed this morning at 6:00 a.m.; however, the staff did remove it last night at 6 p.m. The patient was checked for pos tvoid residual and he was voiding, but a small amount, and he needed to be straight catheterized mul tiple times. OBJECTIVE: VITAL SIGNS: His temperature today was 98.5, respirations 19, pulse is 82, blood pressure 127/77. ABDOMEN: Soft. There is no mass palpable. LABORATORY DATA: His LDH is 836, alkaline phosphatase 325. The bone scan that he had did show metastatic disease, multiple abnormal focal areas of intensely in creased tracer, and that is the right shoulder, rib cages bilaterally, the spine, the sacrum, the pe lvic bones bilaterally, the distal humerus bilaterally and the left proximal femur. The patient has already received 1 dose of Lupron Depot 7.5 mg. The patient has been voiding today a small amount. The last time he voided about 120 mL and a bladder scan showed 368 and he was straight catheterized for 400 mL. IMPRESSION: 1. Metastatic prostate cancer. 2. Urinary retention. 3. Urethral stricture that has been dilated. PLAN: Continue to check on his voiding and his postvoid residual, and do straight catheterizations as needed. Also, the patient will be started also on Flomax and finasteride, with the hope that roddy t may help him urinate better. If he does not, then I may have to do, again, a cystoscopy and TURP to relieve his obstruction. Dictated By: WILLIAM BUENO/MIRNA Conf#: [id number] DID#: [id number]
[2016-06-30 07:56] VITALS: BP 119/77; RESP 18
[2016-06-30] MEDS: FAMOTIDINE 20 MG TAB PO SCH ×2 (09:14→20:35)
[2016-06-30] MEDS: FINASTERIDE 5 MG TAB PO SCH (09:14)
--- NOTE | 2016-06-30 11:25 | PN ---
Date/Time of Note Date/Time of Note DATE: 06/30/16 TIME: 11:24 Assessment/Plan VTE Prophylaxis VTE Prophylaxis Intervention: SCD's Lines/Catheters IV [facility] Saline Lock Urinary Cath still in place: No Assessment/Plan Chief Complaint/Hosp Course Assessment/Plan 1. Urinary retention due to prostate cancer and urethral stricture, s/p dilatation, still with urinary retention, follow up with urology 2. 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 Constipation, laxatives Plan to discharge home tomorrow if cleared by urology and oncology Problems: Subjective 24 Hr Interval Summary Free Text/Dictation Patient denies any chest pain or shortness of breath Was able to urinate this a.m. No nausea vomiting diarrhea Exam/Review of Systems Vital Signs Vitals Vital Signs Date Time Temp Pulse Resp B/P Pulse Ox O2 Delivery O2 Flow Rate FiO2 06/30/16 07:56 98.6 79 18 119/77 95 06/26/16 17:50 Room Air Intake and Output 06/29/16 06/29/16 06/30/16 15:00 23:00 07:00 Intake Total 2200 ml 1400 ml Output Total 700 ml 1000 ml Balance 1500 ml 400 ml Exam General: The patient is well-developed, Not in acute distress. HEENT: Atraumatic, normocephalic. The pupils are equal and round . Neck: Supple with full range of motion. Chest: Normal expansion of the thorax during inspiration Lungs: Clear to auscultation bilaterally Heart: Normal S1-S2, Regular rhythm and rate. Abdomen: Soft , nontender, nondistended , bowel sounds are present. Extremities: Normal to inspection, no edema no cyanosis Neurologic: Normal mental status,The patient is awake, alert and oriented . Results Result Diagram: 06/27/16 0510 06/27/16 0510 Medications Medications Current Medications Sodium Chloride (NS) 1,000 ml @ 0 mls/hr [id number] IV Last administered on 08:27; Admin Dose 75 MLS/HR; Start 06/26/16 at 15:13 Ondansetron HCl (Zofran Inj) 4 mg Q6H PRN IV NAUSEA AND/OR VOMITING; Start 06/26 at 15:30 Acetaminophen (Tylenol Tab) 650 mg Q6H PRN PO PAIN LEVEL 1-3 OR FEVER; Start at 15:30 Acetaminophen/ Hydrocodone Bitart ([place] (5/325)) 1 tab Q6H PRN PO MODERATE PAIN LEVEL 4-6 Last administered on 06/29/16 14:28; Admin Dose 1 TAB; Start 06/26/16 at 15:30 Morphine Sulfate (morphine) 2 mg Q4H PRN IV SEVERE PAIN LEVEL 7-10; Start at 15:30 Magnesium Hydroxide (Milk Of Mag) 30 ml DAILY PRN PO CONSTIPATION; Start at 15:30 Bisacodyl (Dulcolax) 5 mg DAILY PRN PO CONSTIPATION; Start 06/26/16 at 15:30 Famotidine (Pepcid) 20 mg Q12 PO Last administered on 06/30/16 09:14; Admin Dose 20 MG; Start 06/26/16 at 21:00 Lactulose (Enulose) 20 gm BID PRN PO CONSTIPATION Last administered on 21:06; Admin Dose 20 GM; Start 06/27/16 at 15:00 Tamsulosin HCl (Flomax) 0.4 mg HS PO Last administered on 06/29/16 22:29; Admin Dose 0.4 MG; Start 06/29/16 at 21:00 Finasteride (Proscar) 5 mg DAILY PO Last administered on 06/30/16 09:14; Admin Dose 5 MG; Start 06/29/16 at 19:00 Lorazepam (Ativan) 1 mg HS PO Last administered on 06/29/16 23:10; Admin Dose 1 MG; Start 06/29/16 at 22:57 DOC BENSON MD Jun 30, 2016 11:25
--- NOTE | 2016-06-30 11:49 | PN ---
DATE: 06/30/2016 SUBJECTIVE: Metastatic prostate cancer, urinary retention and urethral stricture. The patient has been having difficulty urinating, even after he was dilated and the catheter was rem britney, but we started him on Flomax yesterday and he already received the injection of Lupron Depot, and apparently he is urinating better. He has been voiding and the postvoid residual is less than 3 00 mL, and in fact, he is more comfortable today; therefore, we will continue to monitor his voiding and postvoid residual and hopefully he will continue to urinate good, then we could probably send h im home tomorrow, and if he does not, then I may have to scope him and do an internal urethrotomy fu rther and may be also resect the prostate. OBJECTIVE FINDINGS: VITAL SIGNS: Temperature 98.6, respirations 18, blood pressure 119/77, pulse is 79. ABDOMEN: Soft. The bladder is not distended. The bone scan again did show numerous areas of intense activity consistent with mets to the bone, an d that includes the right shoulder, the rib cage bilaterally, the spine, the sacrum, pelvic bones b ilaterally, distal humerus bilaterally and left proximal femur. The patient stated he does not have any pain from his bones and he only has mild pain when he tries to urinate. PLAN: To continue the present treatment. Continue the finasteride, tamsulosin, and he already rece ived the Lupron Depot. Dictated By: WILLIAM BUENO/MIRNA Conf#: [id number] DID#: [id number]
[2016-06-30 20:07] VITALS: BP 138/79; RESP 20
[2016-06-30] MEDS: TAMSULOSIN (SR) 0.4 MG CAP PO SCH (20:35)
[2016-06-30] MEDS: LORAZEPAM 1 MG TAB PO SCH (20:35)
[2016-07-01 07:51] VITALS: BP 128/76; RESP 18
[2016-07-01] MEDS: FINASTERIDE 5 MG TAB PO SCH ×2 (09:00→10:52)
[2016-07-01] MEDS: FAMOTIDINE 20 MG TAB PO SCH ×2 (09:00→20:42)
--- NOTE | 2016-07-01 11:26 | CONS ---
Date/Time of Note Date/Time of Note DATE: 07/01/16 TIME: 11:19 Assessment/Plan Assessment/Plan Chief Complaint/Hosp Course 61 yo with elevated PSA and diffuse bone mets with high suspicion for prostate cancer. Pt has been started on Lupron in house. At this point I need to confer with the other consultants to see if patient needs a biopsy to prove his diagnosis. -discuss possibility of biopsy as this could be another cancer such as bladder ca -Continue the finasteride, tamsulosin for BPH symptoms -cont Lupron Depot given high probability of prostate cancer Problems: Consultation Date/Type/Reason Admit Date/Time Jun 26, 2016 at 14:11 Date of Consultation: Jul 01, 2016 Type of Consultation: Oncology Reason for Consultation Prostate Cancer w mets Referring Provider: DOC BENSON MD Hx of Present Illness 61-year-old male with past medical history of benign prostatic hypertrophy status post TURP in 2014, who presented to emergency room with chief complaint of lower back pain, abdominal pain and painful urination with associated hematuria for the past 3 days. Of note pathology from that TURP did not demonstrate prostate cancer. In the emergency room, the patient was noticed to have elevated AST and elevated alkaline phosphatase. The patient underwent a CT scan of the abdomen and pelvis that showed significantly enlarged prostate with adjacent urinary bladder wall thickening. The CT also revealed retroperitoneal and left iliac lymphadenopathy along with solid nodules in the perirectal and ischiorectal fat. The CT also revealed multiple osteosclerotic lesions. Bone scan was done which revealed numerous abnormal focal areas of intensely increased tracer activity are seen in the right shoulder, rib cages bilaterally, spine, sacrum, pelvic bones bilaterally, distal humerus bilaterally, and left proximal femur. PSA was drawn which was noted to be elevated at 54. He is now being followed by urology and is being treated for metastatic prostate cancer given the diffuse bone lesions and elevated PSA. He was given his first dose of Lupron. Subjective hx not possible: other (bone pain) Constitutional: no complaints Eyes: no complaints ENT: no complaints Respiratory: no complaints Cardiovascular: no complaints Gastrointestinal: no complaints Genitourinary: no complaints Musculoskeletal: back pain, bone/joint pain Skin: no complaints Neurologic: no complaints Psychological: nl mood/affect, no complaints Past Medical History benign prostatic hypertrophy status post TURP in 2014 Family History Significant Family History: no pertinent family hx Social History Alcohol Use: none Smoking Status: Never smoker Drug Use: none Exam/Review of Systems Vital Signs Vitals Vital Signs Date Time Temp Pulse Resp B/P Pulse Ox O2 Delivery O2 Flow Rate FiO2 07/01/16 07:51 98.5 75 18 128/76 96 Intake and Output 06/30/16 06/30/16 07/01/16 15:00 23:00 07:00 Intake Total 2660 ml Output Total 2010 ml Balance 650 ml Exam Constitutional: alert, oriented Psych: nl mood/affect, no complaints Head: normocephalic Eyes: nl conjunctiva ENMT: nl external ears & nose, nl lips & teeth, nl nasal mucosa & septum Neck: non-tender, supple Respiratory: clear to auscultation, normal air movement Cardiovascular: nl pulses, regular rate and rhythm Gastrointestinal: soft Musculoskeletal: nl extremities to inspection, nl gait and stance Extremities: normal pulses Results Result Diagram: 06/27/1650906/27/16 0510 Medications Medications Current Medications Sodium Chloride (NS) 1,000 ml @ 0 mls/hr [id number] IV Last administered on 08:27; Admin Dose 75 MLS/HR; Start 06/26/16 at 15:13 Ondansetron HCl (Zofran Inj) 4 mg Q6H PRN IV NAUSEA AND/OR VOMITING; Start 06/26 at 15:30 Acetaminophen (Tylenol Tab) 650 mg Q6H PRN PO PAIN LEVEL 1-3 OR FEVER; Start at 15:30 Acetaminophen/ Hydrocodone Bitart ([place] (5/325)) 1 tab Q6H PRN PO MODERATE PAIN LEVEL 4-6 Last administered on 06/29/16 14:28; Admin Dose 1 TAB; Start 06/26/16 at 15:30 Morphine Sulfate (morphine) 2 mg Q4H PRN IV SEVERE PAIN LEVEL 7-10; Start at 15:30 Magnesium Hydroxide (Milk Of Mag) 30 ml DAILY PRN PO CONSTIPATION Last administered on 06/30/16 12:48; Admin Dose 30 ML; Start 06/26/16 at 15:30 Bisacodyl (Dulcolax) 5 mg DAILY PRN PO CONSTIPATION Last administered on 22:25; Admin Dose 5 MG; Start 06/26/16 at 15:30 Famotidine (Pepcid) 20 mg Q12 PO Last administered on 07/01/16 09:00; Admin Dose 20 MG; Start 06/26/16 at 21:00 Lactulose (Enulose) 20 gm BID PRN PO CONSTIPATION Last administered on 21:06; Admin Dose 20 GM; Start 06/27/16 at 15:00 Tamsulosin HCl (Flomax) 0.4 mg HS PO Last administered on 06/30/16 20:35; Admin Dose 0.4 MG; Start 06/29/16 at 21:00 Finasteride (Proscar) 5 mg DAILY PO Last administered on 07/01/16 10:52; Admin Dose 5 MG; Start 06/29/16 at 19:00 Lorazepam (Ativan) 1 mg HS PO Last administered on 06/30/16 20:35; Admin Dose 1 MG; Start 06/29/16 at 22:57 JALYN RANDLE M.D. Jul 01, 2016 11:26
--- NOTE | 2016-07-01 11:49 | PDOCDIS ---
Discharge Instructions CONDITION Patient Condition: Good HOME CARE INSTRUCTIONS: Special Diet: Regular ACTIVITY: Activity Restrictions: No Restrictions FOLLOW UP/APPOINTMENTS Appointments Follow up with Urology as out-pt Follow up with PCP as out-pt DOC BENSON MD Jul 01, 2016 11:49
[2016-07-01] MEDS ORDERED: HYDR-906 PO (11:52)
[2016-07-01] MEDS ORDERED: FINA5TAB4 PO (11:52)
[2016-07-01] MEDS ORDERED: TAMS-14 PO (11:52)
--- NOTE | 2016-07-01 12:19 | PN ---
Date/Time of Note Date/Time of Note DATE: 07/01/16 TIME: 12:18 Assessment/Plan VTE Prophylaxis VTE Prophylaxis Intervention: SCD's Lines/Catheters IV Catheter Type (from [facility]): Saline Lock Urinary Cath still in place: No Assessment/Plan Chief Complaint/Hosp Course Assessment/Plan 1. Urinary retention due to prostate cancer and urethral stricture, s/p dilatation, still with urinary retention, follow up with urology for possible TURP 2. 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 Constipation, laxatives Plan to discharge home tomorrow if cleared by urology and oncology Problems: Subjective 24 Hr Interval Summary Free Text/Dictation Patient complains of having difficulty with urination No nausea vomiting diarrhea Denies of any abdominal pain Exam/Review of Systems Vital Signs Vitals Vital Signs Date Time Temp Pulse Resp B/P Pulse Ox O2 Delivery O2 Flow Rate FiO2 07/01/16 07:51 98.5 75 18 128/76 96 Intake and Output 06/30/16 06/30/16 07/01/16 15:00 23:00 07:00 Intake Total 2660 ml Output Total 2010 ml Balance 650 ml Exam General: The patient is well-developed, Not in acute distress. HEENT: Atraumatic, normocephalic. The pupils are equal and round . Neck: Supple with full range of motion. Chest: Normal expansion of the thorax during inspiration Lungs: Clear to auscultation bilaterally Heart: Normal S1-S2, Regular rhythm and rate. Abdomen: Soft , nontender, nondistended , bowel sounds are present. Extremities: Normal to inspection, no edema no cyanosis Neurologic: Normal mental status,The patient is awake, alert and oriented . Results Result Diagram: 06/27/16 0510 06/27/16 0510 Medications Medications Current Medications Sodium Chloride (NS) 1,000 ml @ 0 mls/hr [id number] IV Last administered on 08:27; Admin Dose 75 MLS/HR; Start 06/26/16 at 15:13 Ondansetron HCl (Zofran Inj) 4 mg Q6H PRN IV NAUSEA AND/OR VOMITING; Start 06/26 at 15:30 Acetaminophen (Tylenol Tab) 650 mg Q6H PRN PO PAIN LEVEL 1-3 OR FEVER; Start at 15:30 Acetaminophen/ Hydrocodone Bitart ([place] (5/325)) 1 tab Q6H PRN PO MODERATE PAIN LEVEL 4-6 Last administered on 06/29/16 14:28; Admin Dose 1 TAB; Start 06/26/16 at 15:30 Morphine Sulfate (morphine) 2 mg Q4H PRN IV SEVERE PAIN LEVEL 7-10; Start at 15:30 Magnesium Hydroxide (Milk Of Mag) 30 ml DAILY PRN PO CONSTIPATION Last administered on 06/30/16 12:48; Admin Dose 30 ML; Start 06/26/16 at 15:30 Bisacodyl (Dulcolax) 5 mg DAILY PRN PO CONSTIPATION Last administered on 22:25; Admin Dose 5 MG; Start 06/26/16 at 15:30 Famotidine (Pepcid) 20 mg Q12 PO Last administered on 07/01/16 09:00; Admin Dose 20 MG; Start 06/26/16 at 21:00 Lactulose (Enulose) 20 gm BID PRN PO CONSTIPATION Last administered on 21:06; Admin Dose 20 GM; Start 06/27/16 at 15:00 Tamsulosin HCl (Flomax) 0.4 mg HS PO Last administered on 06/30/16 20:35; Admin Dose 0.4 MG; Start 06/29/16 at 21:00 Finasteride (Proscar) 5 mg DAILY PO Last administered on 07/01/16 10:52; Admin Dose 5 MG; Start 06/29/16 at 19:00 Lorazepam (Ativan) 1 mg HS PO Last administered on 06/30/16 20:35; Admin Dose 1 MG; Start 06/29/16 at 22:57 DOC BENSON MD Jul 01, 2016 12:19
--- NOTE | 2016-07-01 19:24 | PN ---
DATE: 07/01/2016 SUBJECTIVE: He had difficulty emptying his bladder and urinary retention, urethral stricture, metastatic prostate cancer. The patient states that he is voiding, but he is not emptying his bladder. OBJECTIVE: VITAL SIGNS: Show a temperature of 98.5, pulse 75, respiration 18, blood pressure 128/76. ABDOMEN: Soft. GENITOURINARY: The external genitalia are normal. The patient has been voiding 50 mL each time and a PVR has been 170 to 230. However, earlier in the day he had a higher postvoid residual and was catheterized. The patient is concerned at the present that: 1. He is not able to empty his bladder. 2. He is concerned about taking the medications. He thought that taking the finasteride is blocking him because read in some of the side effects that he is not able to urinate. I explained to him that the effect of the finasteride is not instantaneous. It takes many months for the Proscar to work and it does not cause a blockage. Usually when a patient is on Proscar, he has an enlarged prostate. Therefore, it is associated obstruction by the prostate rather than the medicine itself causing the prostate enlargement. IMPRESSION AND PLAN: In any case, I have explained to him the 2 things that the patient is concerned about. 1. The urinary retention and inability to empty his bladder. 2. The prostate cancer. As far as the prostate cancer: 1. Many of the indications are consistent with prostate cancer; that is elevated PSA over 50. 2. Second, his prostate on the rectal exam is hard, very hard. 3. He has a bone scan that is positive for metastatic disease. 4. He does have a CAT scan that showed metastatic disease in the area around the bladder and the prostate, retroperitoneal, and also osteoblastic metastatic disease that is usually consistent with prostate cancer. I told him if we were to make sure that, to have tissue pathology, a tissue diagnosis, we will have to do a transrectal ultrasound and ultrasound-guided biopsy of the prostate. Usually we do that in the office and we could do that later on. However, if he was to undergo a transurethral resection of the prostate to try to relieve any obstruction caused by the prostate, then maybe some of the tissue that we take out may have prostate cancer and that may preclude the need for a prostate biopsy. However, if the cancer is in a peripheral zone; therefore, is not going to be around the urethra, where we resect; and therefore, even if we do a transurethral resection of the prostate, he may later on need to undergo a transrectal ultrasound and ultrasound-guided biopsy to demonstrate that he has cancer. The second problem that he was concerned is the inability to empty his bladder. I told him we already have him on the Flomax and the finasteride and these may help him to where he may not need to have surgery. However, he kept on complaining that he is not able to empty his bladder and he cannot stay like that. I told him second option would be to go in and do a transurethral resection of the prostate. He said, we have done it 1-1/2 years ago and it did help him up until now and he did well for over these 1-1/2 years. Therefore, he would like to have the second option done. So I explained to him that I could do the transurethral resection of the prostate and do an internal urethrotomy under direct vision and hopefully that will help him empty his bladder. But there is no mean this guarantee that he is going to empty his bladder completely. I made it clear to him that in case the transurethral resection does not show any prostatic cancerous tissue. He will still need to undergo a transrectal ultrasound and CT-guided biopsy to document the diagnosis of prostate cancer. He did understand all of that. I asked him if he has any questions or concerns to ask me and I answered every single question that he had and he is agreeable to proceed with the surgery tomorrow at 5:30 p.m. Dictated By: WILLIAM BUENO/MIRNA Conf#: [id number] DID#: [id number] CC: DOC BENSON MD;*EndCC* MTDD
[2016-07-01 19:45] VITALS: BP 130/72; PULSE 76; RESP 18
[2016-07-01] MEDS: TAMSULOSIN (SR) 0.4 MG CAP PO SCH (20:41)
[2016-07-01] MEDS: LORAZEPAM 1 MG TAB PO SCH (20:41)
[2016-07-01] MEDS: LACTULOSE 30ML CUP PO PRN (20:41)
[2016-07-01] MEDS ORDERED: MAGNESIUM CITRATE 300 ML BTL PO ONE (22:00)
[2016-07-01] MEDS: BISACODYL 10 MG SUPP PR PRN (22:23)
[2016-07-01] MEDS: HYDROCODONE/APAP (5/325) TAB PO PRN (22:23)
[2016-07-02] VITALS (16 sets, daily range): BP systolic 125–175; BP diastolic 62–99; PULSE 60–78; RESP 13–27
[2016-07-02] MEDS: FAMOTIDINE 20 MG TAB PO SCH (09:16)
[2016-07-02] MEDS: FINASTERIDE 5 MG TAB PO SCH (09:16)
--- NOTE | 2016-07-02 10:09 | PN ---
Date/Time of Note Date/Time of Note DATE: 07/02/16 TIME: 10:05 Assessment/Plan VTE Prophylaxis VTE Prophylaxis Intervention: contraindicated VTE Contraindication Reason: blood coagulation disorder, bleeding (Risk) Lines/Catheters IV Catheter Type (from Nrsg): Saline Lock Urinary Cath still in place: Yes Reason Cath still needed: urinary retention Assessment/Plan Chief Complaint/Hosp Course Hospitalist coverage: S: 07/02- Events noted O: vss PE No pallor adenopathy Reg CTAB Bs+, nt, nd, no R/R/G. No cvta No edema A/P: 1. Obstructive uropathy, stable. Cysto/TURP/urethrotomy/ possible prostate bx. -Low periop risk, may proceed from medical standpoint. No Lovenox for now. 2. Possible metastatic malignancy; prostate vs bladder in origin 3. Urinary retention 4. Ho BPH/TURP Problems: Exam/Review of Systems Vital Signs Vitals Vital Signs Date Time Temp Pulse Resp B/P Pulse Ox O2 Delivery O2 Flow Rate FiO2 07/02/16 08:04 97.4 62 18 135/75 92 07/01/16 19:45 Room Air Intake and Output 07/01/16 07/01/16 07/02/16 15:00 23:00 07:00 Intake Total 960 ml 2400 ml Output Total 1560 ml 2200 ml Balance -600 ml 200 ml Medications Medications Current Medications Sodium Chloride (NS) 1,000 ml @ 0 mls/hr [id number] IV Last administered on 08:27; Admin Dose 75 MLS/HR; Start 06/26/16 at 15:13 Ondansetron HCl (Zofran Inj) 4 mg Q6H PRN IV NAUSEA AND/OR VOMITING; Start 06/26 at 15:30 Acetaminophen (Tylenol Tab) 650 mg Q6H PRN PO PAIN LEVEL 1-3 OR FEVER; Start at 15:30 Acetaminophen/ Hydrocodone Bitart ([place] (5/325)) 1 tab Q6H PRN PO MODERATE PAIN LEVEL 4-6 Last administered on 07/01/16 22:23; Admin Dose 1 TAB; Start 06/26/16 at 15:30 Morphine Sulfate (morphine) 2 mg Q4H PRN IV SEVERE PAIN LEVEL 7-10; Start at 15:30 Magnesium Hydroxide (Milk Of Mag) 30 ml DAILY PRN PO CONSTIPATION Last administered on 06/30/16 12:48; Admin Dose 30 ML; Start 06/26/16 at 15:30 Famotidine (Pepcid) 20 mg Q12 PO Last administered on 07/02/16 09:16; Admin Dose 20 MG; Start 06/26/16 at 21:00 Lactulose (Enulose) 20 gm BID PRN PO CONSTIPATION Last administered on 20:41; Admin Dose 20 GM; Start 06/27/16 at 15:00 Tamsulosin HCl (Flomax) 0.4 mg HS PO Last administered on 07/01/16 20:41; Admin Dose 0.4 MG; Start 06/29/16 at 21:00 Finasteride (Proscar) 5 mg DAILY PO Last administered on 07/02/16 09:16; Admin Dose 5 MG; Start 06/29/16 at 19:00 Lorazepam (Ativan) 1 mg HS PO Last administered on 07/01/16 20:41; Admin Dose 1 MG; Start 06/29/16 at 22:57 Bisacodyl (Dulcolax Supp) 10 mg DAILY PRN [place] CONSTIPATION Last administered on 07/01/16 22:23; Admin Dose 10 MG; Start 07/01/16 at 22:00 YAMILETH BURROUGHS MD Jul 02, 2016 10:09
--- NOTE | 2016-07-02 10:48 | RADRPT ---
PROCEDURE: XR Chest 1 View. CLINICAL INDICATION: Abnormal breath sounds, preop. TECHNIQUE: AP view of the chest were obtained. COMPARISON: September 02, 2015 FINDINGS: The cardiomediastinal silhouette is within normal limits. The lungs are hyperexpanded. No consolidat ions are identified. No pneumothorax is seen. Osseous structures are intact. IMPRESSION: Hyperexpanded, clear lungs. RPTAT: AA .Mj Hayden MD, MD Date Time Electronically viewed and signed by .Mj Hayden MD, MD on 07/02/2016 10:48 .P/
[2016-07-02] MEDS: HYDROCODONE/APAP (5/325) TAB PO PRN (11:28)
--- NOTE | 2016-07-02 14:25 | CONS ---
Date/Time of Note Date/Time of Note DATE: 07/02/16 TIME: 14:18 Assessment/Plan Assessment/Plan Chief Complaint/Hosp Course 61 yo with elevated PSA and diffuse bone mets with high suspicion for prostate cancer. Pt has been started on Lupron in house. Per urology given the PSA over 50, his hard prostate on the rectal exam and bone scan with metastatic disease this is consistent with metastatic prostate cancer. Patient is scheduled for TURP to help with his voiding sx. -Continue the finasteride, tamsulosin for BPH symptoms -cont Lupron Depot given high probability of prostate cancer -agree with TURP to be done today. Will follow up pathology form this procedure. Problems: Consultation Date/Type/Reason Admit Date/Time Jun 26, 2016 at 14:11 Initial Consult Date 07/01/16 Type of Consultation: Oncology Reason for Consultation prostate ca Referring Provider: DOC BENSON MD 24 HR Interval Summary Free Text/Dictation no acute overnight events. pt still voiding but having difficulty emptying the bladder Exam/Review of Systems Vital Signs Vitals Vital Signs Date Time Temp Pulse Resp B/P Pulse Ox O2 Delivery O2 Flow Rate FiO2 07/02/16 08:04 97.4 62 18 135/75 92 07/01/16 19:45 Room Air Intake and Output 07/01/16 07/01/16 07/02/16 15:00 23:00 07:00 Intake Total 960 ml 2400 ml Output Total 1560 ml 2200 ml Balance -600 ml 200 ml Exam Constitutional: alert Psych: nl mood/affect, no complaints Head: atraumatic, normocephalic Eyes: nl conjunctiva ENMT: nl external ears & nose Neck: non-tender, supple Respiratory: clear to auscultation, normal air movement Cardiovascular: nl pulses, regular rate and rhythm Gastrointestinal: soft Musculoskeletal: nl extremities to inspection Medications Medications Current Medications Sodium Chloride (NS) 1,000 ml @ 0 mls/hr [id number] IV Last administered on 08:27; Admin Dose 75 MLS/HR; Start 06/26/16 at 15:13 Ondansetron HCl (Zofran Inj) 4 mg Q6H PRN IV NAUSEA AND/OR VOMITING; Start 06/26 at 15:30 Acetaminophen (Tylenol Tab) 650 mg Q6H PRN PO PAIN LEVEL 1-3 OR FEVER; Start at 15:30 Acetaminophen/ Hydrocodone Bitart ([place] (5/325)) 1 tab Q6H PRN PO MODERATE PAIN LEVEL 4-6 Last administered on 07/02/16 11:28; Admin Dose 1 TAB; Start 06/26/16 at 15:30 Morphine Sulfate (morphine) 2 mg Q4H PRN IV SEVERE PAIN LEVEL 7-10; Start at 15:30 Magnesium Hydroxide (Milk Of Mag) 30 ml DAILY PRN PO CONSTIPATION Last administered on 06/30/16 12:48; Admin Dose 30 ML; Start 06/26/16 at 15:30 Lactulose (Enulose) 20 gm BID PRN PO CONSTIPATION Last administered on 20:41; Admin Dose 20 GM; Start 06/27/16 at 15:00 Tamsulosin HCl (Flomax) 0.4 mg HS PO Last administered on 07/01/16 20:41; Admin Dose 0.4 MG; Start 06/29/16 at 21:00 Finasteride (Proscar) 5 mg DAILY PO Last administered on 07/02/16 09:16; Admin Dose 5 MG; Start 06/29/16 at 19:00 Lorazepam (Ativan) 1 mg HS PO Last administered on 07/01/16 20:41; Admin Dose 1 MG; Start 06/29/16 at 22:57 Bisacodyl (Dulcolax Supp) 10 mg DAILY PRN [place] CONSTIPATION Last administered on 07/01/16 22:23; Admin Dose 10 MG; Start 07/01/16 at 22:00 Famotidine (Pepcid) 20 mg DAILY PO ; Start 07/03/16 at 09:00 JALYN RANDLE M.D. Jul 02, 2016 14:24
[2016-07-02] MEDS ORDERED: MIDAZOLAM 1 MG/ML 2 ML INJ ONE (17:05)
[2016-07-02] MEDS ORDERED: morphine 10 MG INJ ONE (18:25)
[2016-07-02] MEDS ORDERED: DIPHENHYDRAMINE 50 MG INJ IV PRN (18:30)
[2016-07-02] MEDS ORDERED: ONDANSETRON 4 MG INJ IV PRN (18:30)
[2016-07-02] MEDS ORDERED: HYDROmorphONE (0.2 MG/ML) 10ML SYG IV PRN ×2 (18:30)
[2016-07-02] MEDS ORDERED: MEPERIDINE 25 MG INJ IV PRN (18:30)
[2016-07-02] MEDS ORDERED: FENTAnyl 50 MCG/ML VIAL IV PRN (18:30)
[2016-07-02] MEDS ORDERED: ROCURONIUM 50 MG INJ ONE (18:58)
[2016-07-02] MEDS ORDERED: PROPOFOL 20 ML ONE (18:58)
[2016-07-02] MEDS ORDERED: LIDOCAINE 2% (SDV) 5 ML INJ ONE (18:58)
[2016-07-02] MEDS ORDERED: GLYCOPYRROLATE 0.4 MG INJ ONE (18:59)
[2016-07-02] MEDS ORDERED: NEOSTIGMINE 3 MG/3 ML SYRINGE ONE (18:59)
[2016-07-02] MEDS ORDERED: ONDANSETRON 4 MG INJ ONE (18:59)
[2016-07-02] MEDS: TAMSULOSIN (SR) 0.4 MG CAP PO SCH (21:25)
[2016-07-02] MEDS: LORAZEPAM 1 MG TAB PO SCH (21:25)
--- NOTE | 2016-07-02 23:14 | OPR ---
DATE OF OPERATION: 07/02/2016 PREOPERATIVE DIAGNOSES: 1. Urinary retention. 2. Urethral stricture. 3. Adenocarcinoma of the prostate with metastasis. POSTOPERATIVE DIAGNOSES: 1. Urinary retention. 2. Urethral stricture. 3. Adenocarcinoma of the prostate with metastasis, pending pathology report. OPERATION PERFORMED: Cystoscopy, internal urethrotomy under direct vision and transurethral resecti on of the prostate. TECHNIQUE: The patient was brought to the operating room. General anesthesia was induced. The pat ient was positioned in the lithotomy position. Two grams of Ancef was given at the start of the pro cedure. Timeout was done. The patient was identified by his name, date and the procedure. O nce the patient was prepped and draped in the usual sterile manner, the direct vision internal ureth rotomy was done, and the patient did have a distal urethral stricture that was cut at the 12-o'clock position, and then we were able to advance the scope all the way into the bladder. The bladder beena eared to be trabeculated. There was no evidence of bladder tumor or ulceration. However, the patie nt's prostate was a little tight, and there was some growth of prostatic tissue in the area of the l ateral lobes toward the apical area and also anteriorly. Once the internal urethrotomy was done, th e scope was removed, and then I re-introduced the resectoscope sheath under direct vision. Once in the bladder, the resection of the prostate was done, again between the 5- and 7-o'clock position. T hen I did resect the left lateral lobe, then the right lateral lobe and finally the anterior lobe. All the apical tissue was resected. The ureteral orifices were visualized and were intact all the t abdon, and the external sphincter was always also identified and safeguarded. At the end of the proce dure, all the prostatic chips were evacuated. Good hemostasis was obtained, and the patient had a 2 4-Romansh 3-way Zaidi catheter inserted, the balloon inflated with 50 mL of sterile water. Continuou s bladder irrigation was started in the operating room, and the patient was transferred to recovery room in stable and satisfactory condition. Dictated By: WILLIAM BUENO/MIRNA Conf#: [id number] DID#: [id number]
[2016-07-03 06:20] LABS: ALBUMIN 3.3 g/dl (3.3-4.9)
[2016-07-03 06:21] LABS: POTASSIUM 4.2 mmol/L (3.5-5.1)
[2016-07-03 06:23] LABS: ALBUMIN/GLOBULIN RATIO 1.03; BILIRUBIN,INDIRECT 0.4 mg/dl (0-1.1); BILIRUBIN,TOTAL 0.4 mg/dl (0.2-1.3); CREATININE 0.89 mg/dl (0.61-1.24); PHOSPHORUS 4.5 mg/dl (2.5-4.9); TOTAL PROTEIN 6.5 g/dl (6.1-8.1)
[2016-07-03 06:24] LABS: CALCIUM 8.7 mg/dl (8.4-10.2)
[2016-07-03 06:30] LABS: INR 1.3; PROTIME 16.3 Sec (12.2-14.2); PT RATIO 1.3
[2016-07-03 06:32] LABS: BASOPHILS % 0.3 % (0.0-2.0); EOSINOPHILS # 0.1 10^3/ul (0.0-0.5); HEMATOCRIT 35.8 % (42.0-52.0); HEMOGLOBIN 12.3 g/dl (14.0-18.0); MEAN CORPUSCULAR HEMOGLOBIN 31.4 pg (29.0-33.0); MEAN CORPUSCULAR HGB CONC 34.2 g/dl (32.0-37.0); MEAN CORPUSCULAR VOLUME 91.6 fl (82.0-101.0); MEAN PLATELET VOLUME 7.2 fl (7.4-10.4); MONOCYTE # 0.5 10^3/ul (0.3-0.9); MONOCYTES % 7.5 % (0.0-11.0); NEUTROPHIL # 5.3 10^3/ul (1.6-7.5); NEUTROPHILS % 76.2 % (39.0-77.0); PLATELET COUNT 242 10^3/UL (140-440); RED BLOOD COUNT 3.91 10^6/ul (4.70-6.10); RED CELL DISTRIBUTION WIDTH 12.4 % (11.5-14.5)
[2016-07-03 06:39] LABS: CONDITION 1
[2016-07-03 07:42] VITALS: BP 120/68; RESP 16
[2016-07-03] MEDS: FAMOTIDINE 20 MG TAB PO SCH (08:18)
[2016-07-03] MEDS: FINASTERIDE 5 MG TAB PO SCH (08:18)
[2016-07-03] MEDS: BISACODYL 10 MG SUPP PR PRN (08:20)
--- NOTE | 2016-07-03 09:39 | PN ---
DATE: 07/03/2016 SUBJECTIVE: Status post transurethral resection of prostate and internal urethrotomy under direct v ision. The patient is postoperative day 1. The patient is comfortable and denies having any pain a nd he feels much better. OBJECTIVE: VITAL SIGNS: His temperature is 98.2, blood pressure 120/68, pulse 66, respiration is 16. ABDOMEN: Soft and the Zaidi catheter is draining clear pink urine with the bladder irrigation. LABORATORY DATA: CBC shows a white count of 7.0, hemoglobin 12.3, hematocrit 35.8. The BUN is 16, creatinine 0.89. IMPRESSION AND PLAN: Postoperative day 1 post transurethral resection of prostate. The patient doi ng well. We will down the bladder irrigation and encourage him to drink more fluids or he could amb ulate and go to the bathroom. Dictated By: WILLIAM BUENO/MIRNA Conf#: [id number] DID#: [id number]
[2016-07-03] MEDS: morphine 2 MG INJ IV PRN (10:26)
--- NOTE | 2016-07-03 12:00 | CONS ---
Date/Time of Note Date/Time of Note DATE: 07/03/16 TIME: 11:58 Assessment/Plan Assessment/Plan Chief Complaint/Hosp Course 61 yo with elevated PSA and diffuse bone mets with high suspicion for prostate cancer. Pt has been started on Lupron in house. Per urology given the PSA over 50, his hard prostate on the rectal exam and bone scan with metastatic disease this is consistent with metastatic prostate cancer. Patient is now s/p TURP to help with his voiding sx. -Continue the finasteride, tamsulosin for BPH symptoms -cont Lupron Depot given high probability of prostate cancer -Will follow up pathology form the TURP procedure Problems: Consultation Date/Type/Reason Admit Date/Time Jun 26, 2016 at 14:11 Initial Consult Date 07/01/16 Type of Consultation: Oncology Reason for Consultation Prostate cancer Referring Provider: DOC BENSON MD 24 HR Interval Summary Free Text/Dictation pt is s/p TURP yesterday. States he is already voiding better, Exam/Review of Systems Vital Signs Vitals Vital Signs Date Time Temp Pulse Resp B/P Pulse Ox O2 Delivery O2 Flow Rate FiO2 07/03/16 07:42 98.2 86 16 120/68 98 07/02/16 21:30 Nasal Cannula 2.0 Intake and Output 07/02/16 07/02/16 07/03/16 15:00 23:00 07:00 Intake Total 56801 ml 550 ml Output Total 1900 ml 1550 ml Balance 16547 ml -1000 ml Exam Constitutional: alert, oriented Psych: no complaints Head: atraumatic, normocephalic Eyes: nl conjunctiva ENMT: nl external ears & nose Neck: non-tender, supple Respiratory: clear to auscultation Cardiovascular: nl pulses, regular rate and rhythm Gastrointestinal: soft Genitourinary - Male: other (foy in place) Musculoskeletal: nl extremities to inspection, nl gait and stance Results Result Diagram: 07/03/16 0455 07/03/16 0455 Results 24 hrs Laboratory Tests Test 07/03/16 04:55 Alanine Aminotransferase (ALT/SGPT) 29 Albumin 3.3 Albumin/Globulin Ratio 1.03 Alkaline Phosphatase 283 H Anion Gap 12 Aspartate Amino Transf (AST/SGOT) 45 Basophils # 0.0 Basophils % 0.3 Blood Morphology Comment Blood Urea Nitrogen 16 Calcium Level 8.7 Carbon Dioxide Level 29 Chloride Level 101 Creatinine 0.89 Direct Bilirubin 0.00 Eosinophils # 0.1 Eosinophils % 1.0 Globulin 3.20 Glucose Level 98 Hematocrit 35.8 L Hemoglobin 12.3 L INR International Normalized Ratio 1.30 Indirect Bilirubin 0.4 Lymphocytes # 1.0 Lymphocytes % 15.0 Magnesium Level 2.0 Mean Corpuscular Hemoglobin 31.4 Mean Corpuscular Hemoglobin Concent 34.2 Mean Corpuscular Volume 91.6 Mean Platelet Volume 7.2 L Monocytes # 0.5 Monocytes % 7.5 Neutrophils # 5.3 Neutrophils % 76.2 Nucleated Red Blood Cells # 0.0 Nucleated Red Blood Cells % 0.0 Phosphorus Level 4.5 Platelet Count 242 # Potassium Level 4.2 Prothrombin Time 16.3 H Prothrombin Time Ratio 1.3 Red Blood Count 3.91 L Red Cell Distribution Width 12.4 Sodium Level 138 Total Bilirubin 0.4 Total Protein 6.5 White Blood Count 7.0 Medications Medications Current Medications Sodium Chloride (NS) 1,000 ml @ 0 mls/hr [id number] IV Last administered on 08:27; Admin Dose 75 MLS/HR; Start 06/26/16 at 15:13 Ondansetron HCl (Zofran Inj) 4 mg Q6H PRN IV NAUSEA AND/OR VOMITING; Start 06/26 at 15:30 Acetaminophen (Tylenol Tab) 650 mg Q6H PRN PO PAIN LEVEL 1-3 OR FEVER; Start at 15:30 Acetaminophen/ Hydrocodone Bitart ([place] (5/325)) 1 tab Q6H PRN PO MODERATE PAIN LEVEL 4-6 Last administered on 07/02/16 11:28; Admin Dose 1 TAB; Start 06/26/16 at 15:30 Morphine Sulfate (morphine) 2 mg Q4H PRN IV SEVERE PAIN LEVEL 7-10 Last administered on 07/03/16 10:26; Admin Dose 2 MG; Start 06/26/16 at 15:30 Magnesium Hydroxide (Milk Of Mag) 30 ml DAILY PRN PO CONSTIPATION Last administered on 06/30/16 12:48; Admin Dose 30 ML; Start 06/26/16 at 15:30 Lactulose (Enulose) 20 gm BID PRN PO CONSTIPATION Last administered on 20:41; Admin Dose 20 GM; Start 06/27/16 at 15:00 Tamsulosin HCl (Flomax) 0.4 mg HS PO Last administered on 07/02/16 21:25; Admin Dose 0.4 MG; Start 06/29/16 at 21:00 Finasteride (Proscar) 5 mg DAILY PO Last administered on 07/03/16 08:18; Admin Dose 5 MG; Start 06/29/16 at 19:00 Lorazepam (Ativan) 1 mg HS PO Last administered on 07/02/16 21:25; Admin Dose 1 MG; Start 06/29/16 at 22:57 Bisacodyl (Dulcolax Supp) 10 mg DAILY PRN [place] CONSTIPATION Last administered on 07/03/16 08:20; Admin Dose 10 MG; Start 07/01/16 at 22:00 Famotidine (Pepcid) 20 mg DAILY PO Last administered on 07/03/16 08:18; Admin Dose 20 MG; Start 07/03/16 at 09:00 JALYN RANDLE M.D. Jul 03, 2016 12:00
--- NOTE | 2016-07-03 14:40 | RADRPT ---
Vent Rate: 79 bpm RR Interval: 0 msec MN Interval: 128 msec QRS Duration: 82 msec QT Interval: 368 msec QTC Interval: 421 msec P-R-T [place]: 57 - 32 - 35 degrees Normal sinus rhythm Normal ECG Electronically Signed By: Lacho Jaeger [id number]
[2016-07-03 19:07] LABS: POTASSIUM 3.8 mmol/L (3.5-5.1)
[2016-07-03 19:10] LABS: CREATININE 0.99 mg/dl (0.61-1.24)
[2016-07-03 19:11] LABS: CALCIUM 8.8 mg/dl (8.4-10.2)
[2016-07-03] MEDS: LORAZEPAM 1 MG TAB PO SCH (20:03)
[2016-07-03] MEDS: TAMSULOSIN (SR) 0.4 MG CAP PO SCH (20:03)
[2016-07-03] MEDS: LACTULOSE 30ML CUP PO PRN (20:03)
[2016-07-03 21:18] VITALS: BP 131/88; RESP 18
[2016-07-04 07:58] VITALS: BP 111/68; RESP 20
--- NOTE | 2016-07-04 08:29 | PN ---
DATE: 07/04/2016 SUBJECTIVE: This patient is status post transurethral resection of the prostate. He is feeling com fortable and denies having any pain. OBJECTIVE: VITAL SIGNS: His temperature is 98.6, respiration is 18, pulse is 96, blood pressure 131/88. ABDOMEN: Soft. GENITOURINARY: The urine from the catheter is clear with the irrigation call running slow. LABORATORY DATA: His CBC shows a white count of 7.0, hemoglobin 12.3. The BUN is 13, creatinine 0. 99. PLAN: To stop the irrigation and encourage him to drink a lot of water, and if the urine remains re asonably clear, then he may be able to go home tomorrow. Dictated By: WILLIAM BUENO/MIRNA Conf#: [id number] DID#: [id number]
[2016-07-04] MEDS: FAMOTIDINE 20 MG TAB PO SCH (08:32)
[2016-07-04] MEDS: FINASTERIDE 5 MG TAB PO SCH (08:32)
[2016-07-04] MEDS: morphine 2 MG INJ IV PRN (08:33)
--- NOTE | 2016-07-04 10:47 | CONS ---
Date/Time of Note Date/Time of Note DATE: 07/04/16 TIME: 10:20 Assessment/Plan Assessment/Plan Chief Complaint/Hosp Course 61 yo with elevated PSA and diffuse bone mets with high suspicion for prostate cancer. Pt has been started on Lupron in house. Per urology given the PSA over 50, his hard prostate on the rectal exam and bone scan with metastatic disease this is consistent with metastatic prostate cancer. Patient is now s/p TURP to help with his voiding sx. -Continue the finasteride, tamsulosin for BPH symptoms -cont Lupron Depot given high probability of prostate cancer -Will follow up pathology form the TURP procedure -continue bladder irrigation per urology Approximately 40 min were spent at patients bedside and in coordination of his care Problems: Consultation Date/Type/Reason Admit Date/Time Jun 26, 2016 at 14:11 Initial Consult Date 07/01/16 Type of Consultation: Oncology Reason for Consultation prostate cancer Referring Provider: DOC BENSON MD 24 HR Interval Summary Free Text/Dictation status post transurethral resection of the prostate. no pain. feels better wince surgery Exam/Review of Systems Vital Signs Vitals Vital Signs Date Time Temp Pulse Resp B/P Pulse Ox O2 Delivery O2 Flow Rate FiO2 07/04/16 07:58 98.5 94 20 111/68 93 07/02/16 21:30 Nasal Cannula 2.0 Intake and Output 07/03/16 07/03/16 07/04/16 15:00 23:00 07:00 Intake Total 4000 ml Output Total 1800 ml 1100 ml Balance -1800 ml 2900 ml Exam Constitutional: alert, oriented Psych: no complaints Head: atraumatic, normocephalic Eyes: nl conjunctiva ENMT: nl external ears & nose Neck: non-tender, supple Respiratory: clear to auscultation, normal air movement Cardiovascular: nl pulses, regular rate and rhythm Gastrointestinal: soft Genitourinary - Male: other (foy in place. urine is clear) Musculoskeletal: nl extremities to inspection Extremities: normal pulses Results Result Diagram: 07/03/16 8791 07/03/16 5300 Results 24 hrs Laboratory Tests Test 07/03/16 18:54 Anion Gap 15 Blood Urea Nitrogen 13 Calcium Level 8.8 Carbon Dioxide Level 31 Chloride Level 91 #L Creatinine 0.99 Glucose Level 135 Potassium Level 3.8 Sodium Level 133 L Medications Medications Current Medications Sodium Chloride (NS) 1,000 ml @ 0 mls/hr [id number] IV Last administered on 08:27; Admin Dose 75 MLS/HR; Start 06/26/16 at 15:13 Ondansetron HCl (Zofran Inj) 4 mg Q6H PRN IV NAUSEA AND/OR VOMITING; Start 06/26 at 15:30 Acetaminophen (Tylenol Tab) 650 mg Q6H PRN PO PAIN LEVEL 1-3 OR FEVER; Start at 15:30 Acetaminophen/ Hydrocodone Bitart ([place] (5/325)) 1 tab Q6H PRN PO MODERATE PAIN LEVEL 4-6 Last administered on 07/02/16 11:28; Admin Dose 1 TAB; Start 06/26/16 at 15:30 Morphine Sulfate (morphine) 2 mg Q4H PRN IV SEVERE PAIN LEVEL 7-10 Last administered on 07/04/16 08:33; Admin Dose 2 MG; Start 06/26/16 at 15:30 Magnesium Hydroxide (Milk Of Mag) 30 ml DAILY PRN PO CONSTIPATION Last administered on 06/30/16 12:48; Admin Dose 30 ML; Start 06/26/16 at 15:30 Lactulose (Enulose) 20 gm BID PRN PO CONSTIPATION Last administered on 20:03; Admin Dose 20 GM; Start 06/27/16 at 15:00 Tamsulosin HCl (Flomax) 0.4 mg HS PO Last administered on 07/03/16 20:03; Admin Dose 0.4 MG; Start 06/29/16 at 21:00 Finasteride (Proscar) 5 mg DAILY PO Last administered on 07/04/16 08:32; Admin Dose 5 MG; Start 06/29/16 at 19:00 Lorazepam (Ativan) 1 mg HS PO Last administered on 07/03/16 20:03; Admin Dose 1 MG; Start 06/29/16 at 22:57 Bisacodyl (Dulcolax Supp) 10 mg DAILY PRN [place] CONSTIPATION Last administered on 07/03/16 08:20; Admin Dose 10 MG; Start 07/01/16 at 22:00 Famotidine (Pepcid) 20 mg DAILY PO Last administered on 07/04/16 08:32; Admin Dose 20 MG; Start 07/03/16 at 09:00 JALYN RANDLE M.D. Jul 04, 2016 10:47
--- NOTE | 2016-07-04 11:03 | PN ---
Date/Time of Note Date/Time of Note DATE: 07/04/16 TIME: 11:00 Assessment/Plan VTE Prophylaxis VTE Prophylaxis Intervention: contraindicated (Hematuria) Lines/Catheters IV Catheter Type (from Nrsg): Saline Lock Urinary Cath still in place: Yes Reason Cath still needed: urinary retention Assessment/Plan Chief Complaint/Hosp Course S: 07/03-progressing well. Hematuria improved. No dyspnea fever. Pain stable. O: vss PE No pallor Reg ctab Bs+, nt, nd, no R/R/G. No cvta No edema A/P: 1. Obstructive uropathy, stable. Sp Cysto/TURP/urethrotomy/ prostate bx. 2. Metastatic prostate Ca 3. Urinary retention; sp foy; +/- leg bag foy on dc. 4. Ho bph/turp Problems: Exam/Review of Systems Vital Signs Vitals Vital Signs Date Time Temp Pulse Resp B/P Pulse Ox O2 Delivery O2 Flow Rate FiO2 07/04/16 07:58 98.5 94 20 111/68 93 07/02/16 21:30 Nasal Cannula 2.0 Intake and Output 07/03/16 07/03/16 07/04/16 15:00 23:00 07:00 Intake Total 4000 ml Output Total 1800 ml 1100 ml Balance -1800 ml 2900 ml Results Result Diagram: 07/03/16 0455 07/03/16 3334 Results 24 hrs Laboratory Tests Test 07/03/16 18:54 Anion Gap 15 Blood Urea Nitrogen 13 Calcium Level 8.8 Carbon Dioxide Level 31 Chloride Level 91 #L Creatinine 0.99 Glucose Level 135 Potassium Level 3.8 Sodium Level 133 L Medications Medications Current Medications Sodium Chloride (NS) 1,000 ml @ 0 mls/hr [id number] IV Last administered on 08:27; Admin Dose 75 MLS/HR; Start 06/26/16 at 15:13 Ondansetron HCl (Zofran Inj) 4 mg Q6H PRN IV NAUSEA AND/OR VOMITING; Start 06/26 at 15:30 Acetaminophen (Tylenol Tab) 650 mg Q6H PRN PO PAIN LEVEL 1-3 OR FEVER; Start at 15:30 Acetaminophen/ Hydrocodone Bitart ([place] (5/325)) 1 tab Q6H PRN PO MODERATE PAIN LEVEL 4-6 Last administered on 07/02/16 11:28; Admin Dose 1 TAB; Start 06/26/16 at 15:30 Morphine Sulfate (morphine) 2 mg Q4H PRN IV SEVERE PAIN LEVEL 7-10 Last administered on 07/04/16 08:33; Admin Dose 2 MG; Start 06/26/16 at 15:30 Magnesium Hydroxide (Milk Of Mag) 30 ml DAILY PRN PO CONSTIPATION Last administered on 06/30/16 12:48; Admin Dose 30 ML; Start 06/26/16 at 15:30 Lactulose (Enulose) 20 gm BID PRN PO CONSTIPATION Last administered on 20:03; Admin Dose 20 GM; Start 06/27/16 at 15:00 Tamsulosin HCl (Flomax) 0.4 mg HS PO Last administered on 07/03/16 20:03; Admin Dose 0.4 MG; Start 06/29/16 at 21:00 Finasteride (Proscar) 5 mg DAILY PO Last administered on 07/04/16 08:32; Admin Dose 5 MG; Start 06/29/16 at 19:00 Lorazepam (Ativan) 1 mg HS PO Last administered on 07/03/16 20:03; Admin Dose 1 MG; Start 06/29/16 at 22:57 Bisacodyl (Dulcolax Supp) 10 mg DAILY PRN [place] CONSTIPATION Last administered on 07/03/16 08:20; Admin Dose 10 MG; Start 07/01/16 at 22:00 Famotidine (Pepcid) 20 mg DAILY PO Last administered on 07/04/16 08:32; Admin Dose 20 MG; Start 07/03/16 at 09:00 YAMILETH BURROUGHS MD Jul 04, 2016 11:03
[2016-07-04] MEDS: BISACODYL (EC) 5 MG TAB PO SCH (13:30)
[2016-07-04] MEDS: MAGNESIUM HYDROXIDE 30ML CUP PO SCH ×2 (17:11→21:00)
[2016-07-04 20:00] VITALS: BP 112/68; PULSE 82; RESP 18
[2016-07-04] MEDS: LORAZEPAM 1 MG TAB PO SCH (21:42)
[2016-07-04] MEDS: TAMSULOSIN (SR) 0.4 MG CAP PO SCH (21:42)
[2016-07-05 06:20] LABS: ALBUMIN 3.1 g/dl (3.3-4.9); BASOPHILS % 0.4 % (0.0-2.0); EOSINOPHILS # 0.4 10^3/ul (0.0-0.5); EOSINOPHILS % 5.5 % (0.0-7.0); HEMATOCRIT 34.8 % (42.0-52.0); HEMOGLOBIN 12.1 g/dl (14.0-18.0); LYMPHOCYTES # 1.2 10^3/ul (0.8-2.9); LYMPHOCYTES % 17.2 % (15.0-51.0); MEAN CORPUSCULAR HEMOGLOBIN 31.3 pg (29.0-33.0); MEAN CORPUSCULAR HGB CONC 34.8 g/dl (32.0-37.0); MEAN CORPUSCULAR VOLUME 90.2 fl (82.0-101.0); MEAN PLATELET VOLUME 6.9 fl (7.4-10.4); MONOCYTE # 0.8 10^3/ul (0.3-0.9); MONOCYTES % 11.4 % (0.0-11.0); NEUTROPHIL # 4.6 10^3/ul (1.6-7.5); NEUTROPHILS % 65.5 % (39.0-77.0); PLATELET COUNT 259 10^3/UL (140-440); RED BLOOD COUNT 3.86 10^6/ul (4.70-6.10); RED CELL DISTRIBUTION WIDTH 12.4 % (11.5-14.5)
[2016-07-05 06:21] LABS: CONDITION 1; POTASSIUM 4.1 mmol/L (3.5-5.1)
[2016-07-05 06:23] LABS: ALBUMIN/GLOBULIN RATIO 1.06; BILIRUBIN,INDIRECT 0.4 mg/dl (0-1.1); BILIRUBIN,TOTAL 0.4 mg/dl (0.2-1.3); CREATININE 0.95 mg/dl (0.61-1.24)
[2016-07-05 06:24] LABS: CALCIUM 8.7 mg/dl (8.4-10.2); MAGNESIUM 2.2 mg/dl (1.7-2.5); PHOSPHORUS 3.2 mg/dl (2.5-4.9)
[2016-07-05 07:57] VITALS: BP 121/66
[2016-07-05] MEDS: MAGNESIUM HYDROXIDE 30ML CUP PO SCH (09:00)
[2016-07-05] MEDS: BISACODYL (EC) 5 MG TAB PO SCH (09:00)
[2016-07-05] MEDS: FAMOTIDINE 20 MG TAB PO SCH (09:04)
[2016-07-05] MEDS: FINASTERIDE 5 MG TAB PO SCH (09:04)
[2016-07-05] MEDS: LACTULOSE 30ML CUP PO PRN (09:07)
--- NOTE | 2016-07-05 09:11 | PN ---
DATE: 07/05/2016 SUBJECTIVE: The patient is status post transurethral resection of the prostate and a history of uri nary retention, metastatic prostate cancer. The patient at the present feels fine, has no pain, and has clear urine coming out of the Zaidi catheter. OBJECTIVE: VITAL SIGNS: His temperature is 99.5, pulse is 85. The blood pressure 121/66. ABDOMEN: Soft. Zaidi catheter draining clear urine. LABORATORY DATA: The CBC shows a white count of 7.0, hemoglobin 12.1, hematocrit 34.8, BUN is 11, c reatinine 0.95. The pathology report came back as adenocarcinoma of the prostate with a Blum sco re of 5+5=10. IMPRESSION: Adenocarcinoma of the prostate with metastatic high-grade Blum score of 10, 5+5. PLAN: The patient could go home today with the Zaidi catheter and the leg bag and then see in the o ffice on Saturday and remove the Zaidi catheter. The patient was already started on Lupron Depot, an d I will request a followup from his insurance to give him regular Lupron Depot for his prostate can cer. Dictated By: WILLIAM DONAHUE MD BB/MIRNA Conf#: [id number] DID#: [id number]
[2016-07-05] MEDS ORDERED: SENN-88 PO (10:18)
[2016-07-05] MEDS ORDERED: ACET325T33 PO (10:18)
--- NOTE | 2016-07-05 10:21 | PDOCDIS ---
Discharge Instructions DIAGNOSIS Discharge Diagnosis: urinary retention CONDITION Patient Condition: Stable HOME CARE INSTRUCTIONS: Special Diet: REGULAR DIET ACTIVITY: Activity Restrictions: No Restrictions Slowly Increase Activity FOLLOW UP/APPOINTMENTS Appointments Dr Kamaljit solano. Dr Jeffrey -1-2wks PCP Dr Schulz -1-2wYAMILETH Watts MD Jul 05, 2016 10:20
--- NOTE | 2016-07-05 12:10 | DS ---
DATE OF ADMISSION: 06/26/2016 DATE OF DISCHARGE: 07/05/2016 PRIMARY CARE PHYSICIAN: Dr. Ovi Schulz. BED SPRING MAKER: Dr. Adrian Mari. DIAGNOSIS ON ADMISSION: Obstructive uropathy. DIAGNOSES ON DISCHARGE: 1. Obstructive uropathy. 2. Metastatic prostate cancer. 3. Urinary retention. 4. History of BPH TURP. 5. Pre-diabetes. HOSPITAL COURSE: This is an unfortunate 61-year-old gentleman admitted with obstructive uropathy, h ad abnormal imaging concerning for malignancy. Between malignancy and obstruction, the patient is o ffered surgery. He underwent cystoscopy, transurethral resection of prostate, urethrotomy and prost ate biopsy. Preliminary results appear to state a prostate cancer and this appears to be metastatic . Postoperative hospital course was uncomplicated, patient is tolerating diet, ambulating, pain is controlled and he is fit for discharge. He will be going home with a leg bag Zaidi with followup. He is to see oncology and urology in followup. He has been started on Lupron. PROCEDURE: Cystoscopy, internal urethrotomy under direct vision and transurethral resection of pros castorena. Chest x-ray: No acute process, hyperextended lung. A bone scan was done showing multiple air abnormal foci of intense and increased activity in the axi al and appendicular skeleton consistent with multiple skeletal metastases, DJD of the left knee. T here is uptake in the right shoulder and rib cage bilaterally, spine, sacrum, pelvic bones bilateral ly distal femurs bilaterally and the left proximal femur. CAT scan abdomen and pelvis without cont rast was read as an enlarged prostate, posterior bulging toward the left, gallbladder and urinary wa ll thickening, retroperitoneal and left iliac lymphadenopathy along with solid nodules in the perire ctal and ischiorectal fat, small nonobstructive left renal calculi noted, small hiatal hernia. Uri ne culture negative. Pathology preliminary report shows Supriya grade 5+5 prostate adenocarcinoma, 20% of the submitted tissue. INR 1.3. CMP essentially unremarkable except for AST of 49, alkaline phosphatase of 223. LDH of 8 and 36, protein of 6, albumin of 3. TSH of 1.2. CEA of 4.5. Free T4 of 1, LDH of 836. LFTs okay , total cholesterol 158, triglyceride ____, LDL 99, HDL 37. PSA was 54.5, lipase normal. A1c of 5 .8, Sodium 141, potassium 4, chloride 102, bicarbonate 31, BUN of 11, creatinine 0.9, glucose of 10 2. White cell count of 7, hemoglobin and hematocrit of 12 and 34, platelets of 259. DISCHARGE PLAN: Home. Follow up with primary in [address] Jeffrey in [address] Mari next Saturday. DIET: Regular. ACTIVITY: No heavy lifting. DURABLE MEDICAL EQUIPMENT: Zaidi. CODE STATUS: FULL. CONDITION: Stable. BARRIERS TO DISCHARGE: None. PENDING TESTS: Final pathology [id number]. FUNCTIONAL STATUS: Patient awake, alert, agrees with plan of care. REASON FOR ADMISSION: Urinary obstruction. ALLERGIES: CIPROFLOXACIN. MEDICATIONS: 1. Tylenol as needed. 2. [place] 5 one every 4 hours as needed for pain. 3. Senna-S 2 tablets nightly. 4. Proscar 5 mg daily. 5. Flomax 0.4 at bedtime daily. Dictated By: YAMILETH BURROUGHS MD AC/NTS Conf#: [id number] DID#: [id number] CC: DOC BENSON MD;*EndCC*
[2016-07-05] MEDS ORDERED: SENNA/DOCUSATE NA (8.6MG/50MG) TAB PO SCH (21:00)
== END 2016-07-05 12:10 | disposition home or self-care (01) | DRG 713 ==
LOC: E/R 08:46 → MS2 14:11
PROVIDERS: ADMIT Family Medicine; ATTEND Family Medicine
PROC: 0T7D7ZZ Dilation of Urethra, Via Natural or Artificial Opening (ICD-10-PCS; 2016-06-26)
PROC: 0T9B70Z Drainage of Bladder with Drainage Device, Via Natural or Artificial Opening (ICD-10-PCS; 2016-07-02)
PROC: 0T7D8ZZ Dilation of Urethra, Via Natural or Artificial Opening Endoscopic (ICD-10-PCS; 2016-07-02)
PROC: 0VT08ZZ Resection of Prostate, Via Natural or Artificial Opening Endoscopic (ICD-10-PCS; principal; 2016-07-02 17:30)
DX: C61 Malignant neoplasm of prostate (principal); C79.51 Secondary malignant neoplasm of bone; N13.8 Other obstructive and reflux uropathy; K59.00 Constipation, unspecified; N35.9 Urethral stricture, unspecified; R33.8 Other retention of urine; R73.03 Prediabetes
CPT/HCPCS: 36415; 71010; 74176; 78306; 80048; 80053; 80061; 81001; 81003; 82306; 82378; 83036; 83615; 83690; 83735; 84100; 84153; 84154; 84439; 84443; 85025; 85610; 87086; 88309; 93005; 96374; 96375; A9503; A4310; J1170; J2250; J2270; J2405; J2710; J3010; J7030

== ENCOUNTER 2017-09-26 11:53 | Emergency (ER) | END 2017-09-26 18:30 | disposition home or self-care (01) ==

== ENCOUNTER 2018-12-27 23:25 | Emergency (ER) | payer MEDICARE, OTHER ==
[~2018-12-27] VITALS: Ht 167.6 cm; Wt 79.9 kg
[~2018-12-27 23:25] MED LIST changes: +ACET325T33 PO; +AMOX1TAB10 PO; -CEPH-443 PO; +FAMO-96 PO; +FINA5TAB4 PO; +HYDR-4011 PO; +ONDA4TAB14 PO; +SENN-205 PO; +TAMS-14 PO
[2018-12-27 23:27] VITALS: Ht 167.6 cm; Wt 79.9 kg
[2018-12-27] MEDS ORDERED: ONDANSETRON (ODT) 4 MG TAB ODT STA (23:54)
[2018-12-28] MEDS ORDERED: LIDOCAINE/MYLANTA 40 ML BTL PO ONE
--- NOTE | 2018-12-28 00:05 | ERD ---
ER Documentation Chief Complaint Chief Complaint vomiting today; s/p CT with IV/PO as outpt; after PO contrast started vomit HPI 63-year-old male with past medical history of stage IV prostate cancer who presents with complaint of vomiting after having a CT with IV and p.o. contrast earlier this morning. Patient was getting CT as part of work-up to evaluate distant spread of metastasis. Patient received CT at around 10:30 AM this morning. He went home had some food and then had some nonbilious nonbloody vomiting about 4-6 times. He otherwise denies fevers, chills, shortness of breath or dyspnea, tongue swelling, headache or dizziness, abdominal pain, rash or any other concerning symptoms. ROS All systems reviewed and are negative except as per history of present illness. Medications Home Meds Active Scripts Famotidine* (Pepcid*) 20 Mg Tablet, 20 MG PO BID for 4 Days, TAB Prov:BRIAN DE LUNA PA-C 12/27/18 Ondansetron (Ondansetron Odt) 4 Mg Tab.rapdis, 4 MG PO Q6H PRN for NAUSEA AND/OR VOMITING, #10 TAB Prov:BRIAN DE LUNA PA-C 12/27/18 Hydrocodone/Acetaminophen ([place] 5-325 Tablet) 1 Each Tablet, 1 TAB PO Q6H PRN for PAIN, #10 TAB Prov:STEPHANIE ANDINO PA-C 09/26/17 Amoxicillin/Potassium Clav (Amox-Clav 875-125 mg Tablet) 875-125 mg Tab, 1 TAB PO BID for 10 Days, #20 TAB Prov:STEPHANIE ANDINO PA-C 09/26/17 Sennosides/Docusate Sodium (Senna Plus Tablet) 1 Each Tablet, 2 TAB PO HS for 7 Days, #14 TAB 3 Refills Prov:YAMILETH BURROUGHS MD 07/05/16 Acetaminophen* (Tylenol*) 325 Mg Tablet, 650 MG PO Q6H PRN for PAIN LEVEL 1-3 OR FEVER for 1 Day, #1 TAB Prov:YAMILETH BURROUGHS MD 07/05/16 Hydrocodone/Acetaminophen ([place] 5-325 Tablet) 1 Each Tablet, 1 EACH PO Q6H, #1 TAB Prov:DOC BENSON MD 07/01/16 Tamsulosin Hcl* (Flomax*) 0.4 Mg Cap.er.24h, 0.4 MG PO HS, #30 CAP Prov:DOC BENSON MD 07/01/16 Finasteride* (Finasteride*) 5 Mg Tablet, 5 MG PO DAILY for 30 Days, TAB Prov:DOC BENSON MD 07/01/16 Allergies Allergies: Coded Allergies: No Known Allergy (Unverified , 09/26/17) PMhx/Soc Anesthesia Reaction: No Hx Neurological Disorder: No Hx Respiratory Disorders: No Hx Cardiac Disorders: No Hx Psychiatric Problems: No Hx Miscellaneous Medical Probl: No Hx Alcohol Use: No Hx Substance Use: No Hx Tobacco Use: No Smoking Status: Never smoker FmHx Family History: No diabetes, No coronary disease, No other Physical Exam Vitals Vital Signs Date Temp Pulse Resp B/P (MAP) Pulse Ox O2 O2 Flow FiO2 Time Delivery Rate 12/27/18 97.1 84 18 182/92 99 23:27 (122) Physical Exam I have reviewed the triage vital signs. Const: Well nourished, well developed, appears stated age Eyes: PERRL, no conjunctival injection HENT: NCAT, Neck supple without meningismus CV: RRR, Warm, well-perfused extremities RESP: CTAB, Unlabored respiratory effort GI: soft, non-tender, non-distended, no masses MSK: No gross deformities appreciated Skin: Warm, dry. No rashes Neuro: grossly non focal Psych: Appropriate mood and affect. Results 24 hrs Current Medications Medications Dose Sig/Olaf Start Time Status Last (Trade) Ordered Route PRN Stop Time Admin Dose Reason Admin Ondansetron 4 mg ONCE STAT 12/27/18 DC HCl (Zofran ODT 23:54 Odt) 12/27/18 23:55 40 ml ONCE ONCE 12/28/18 Miscellaneous PO 00:00 Medication 12/28/18 00:01 (Gi Cocktail (2)) Procedures/MDM 63-year-old male presents with vomiting after eating IV and p.o. contrast for CT this morning. I have low suspicion for any acute emergent process warranting further emergent care or work-up. Patient's vital signs are stable. Patient does not have any signs or symptoms of impending airway collapse or any symptoms that might be considered severe allergic reactions to set contrast. He is speaking full sentences and has a reassuring exam. We will treat his vomiting with Zofran. Strict return precautions explained in detail. DISPOSITION PLAN: We discussed follow up with the patient's primary care doctor within 24 to 48 hours. Patient counseled regarding my diagnostic impression and care plan. Prior to discharge all questions answered. Pt agrees with treatment plan and underst ands strict return precautions. Precautionary instructions provided including instructions to return to the ER if not improving or for any worsening or changing symptoms or concerns. Disclaimer: Inadvertent spelling and grammatical errors are likely due to EHR/dictation software use and do not reflect on the overall quality of patient care. Also, please note that the electronic time recorded on this note does not necessarily reflect the actual time of the patient encounter. Departure Diagnosis: Primary Impression: Vomiting Condition: Stable Patient Instructions: Vomiting (4Y-Adult) Referrals: SUZANNA ZAVALETA (PCP) Additional Instructions: Call your primary care doctor TOMORROW for an appointment during the next 2-3 days.See the doctor sooner or return here if your condition worsens before your appointment time. Developed concerning symptoms such as shortness of breath, chest pain, lightheadedness or dizziness return to emergency room for further evaluation. BRIAN DE LUNA PA-C Dec 28, 2018 00:05
[2018-12-28 00:34] VITALS: BP 160/79; PULSE 66; RESP 14
== END 2018-12-28 00:38 | disposition home or self-care (01) ==
LOC: FTE 23:25
DX: R11.10 Vomiting, unspecified (principal); Z85.46 Personal history of malignant neoplasm of prostate
CPT/HCPCS: 99283